=== PATIENT | male | born 1980 | race Caucasian/White ===

== ENCOUNTER 2017-03-10 23:25 | Inpatient (IN) | payer OTHER ==
[~2017-03-10] VITALS: Ht 182.9 cm; Wt 111.4 kg
[~2017-03-10 23:25] MED LIST: BENA20TA14 PO; OXYC1TAB3 PO
--- NOTE | 2017-03-10 23:43 | EMERGENCY ROOM VISIT NOTE ---
History Report prepared by Ken: Anthony Payne Under the Supervision of: Dr. Keyana Alexander D.O. First contact with patient: 23:33 Chief Complaint: ABDOMINAL PAIN Stated Complaint: ABDOMINAL PAIN, PAIN INTO BACK History of Present Illness The patient is a 36 year old male who presents to the Emergency Room with complaints of constant abdominal pain that started earlier tonight. The patient rates his pain as an 8/10 in severity and states that the pain radiates into his back. He reports that he has experienced these symptoms before a week ago at night, but states it was able to go away on its own. He states he has been fine all week until tonight when the symptoms returned. The patient states he was able to get some sleep, but the pain caused him to wake up and visit the ED. The patient admits that he had experienced leg cramps a week ago, but he believe this was due to his increased amount of walking. He admits to occasionally drinking alcohol and reports that his last drink was four days ago. 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 He reports that he has been stressed recently due to his job. He states that his family doctor is Dr. Que Jiang. The patient denies any history of abdominal surgery, worsening pain with breathing, urinary symptoms, bowel symptoms, nausea, medical history, pertinent family history, cough, and cold symptoms. Source of History: patient Onset: tonight Position: abdomen Symptom Intensity: 8/10 Timing: constant Associated Symptoms: No cough, No nausea, No urinary symptoms Review of Systems See HPI for pertinent positives & negatives. A total of 10 systems reviewed and were otherwise negative. Past Medical & Surgical Medical Problems: (1) Hypertension Surgical Problems: (1) History of tonsillectomy Family History Diabetes mellitus Hypertension Social History Smoking Status: Former Smoker Smokeless Tobacco Use: No Alcohol Use: occasionally Drug Use: none Marital Status: single Occupation Status: employed Current/Historical Medications No Active Prescriptions or Reported Meds Allergies Coded Allergies: No Known Allergies (Unverified , 03/10/17) Physical Exam Vital Signs Date Time Temp Pulse Resp B/P (MAP) Pulse Ox O2 Delivery O2 Flow Rate FiO2 03/11/17 03:43 71 18 150/96 96 Room Air 03/11/17 01:45 65 18 157/110 97 Room Air 03/11/17 01:20 70 16 161/112 97 Room Air 03/10/17 23:28 36.7 77 20 163/117 96 Room Air Physical Exam HEENT: Head - normocephalic and atraumatic Pupils are equal, round, and reactive to light. Extraocular eye muscles are intact, and sclera are anicteric. Moderate scleral injection in eyes. Nose - moist nasal mucosa without discharge. Mouth - moist buccal mucosa. Oropharynx is nonerythematous and there is no tonsillar exudate or edema noted. Neck: Supple; no JVD, nuchal rigidity, cervical lymphadenopathy. Heart: Regular rate and rhythm. There is a normal S1 and S2 with no murmurs, clicks, or gallops appreciated. Lungs: Clear to auscultation bilaterally with no wheezes, rales, or rhonchi. Abdomen: Soft, moderate tenderness in right upper quadrant upon palpation, moderate epigastric tenderness upon palpation, nondistended, with good bowel sounds. There are no palpable pulsatile masses or hepatosplenomegaly. There is no guarding, rigidity, or rebound noted. Extremities: No evidence of cyanosis, clubbing, or edema. There are easily palpable peripheral pulses. Skin: warm and dry with good turgor and no rashes. Medical Decision & Procedures ER Provider Diagnostic Interpretation: Radiology results as stated below per my review and the radiologist's interpretation: US GALLBLADDER: Gallbladder sludge. Gallbladder wall thickening measuring approximately 5 millimeters. Positive sonographic Conde sign per sec for portal. Findings may be due to acute cholecystitis. No intra-or extrahepatic player ductal dilation. Mildly increased hepatic echogenicity, can be seen in hepatic steatosis. No right hydronephrosis. No right upper quadrant free fluid. Radiologist: Brittany Erazo M.D. Laboratory Results 03/10/17 23:45 Red Blood Count 4.76, Mean Corpuscular Volume 89.1, Mean Corpuscular Hemoglobin 31.5, Mean Corpuscular Hemoglobin Concent 35.4, Mean Platelet Volume 10.0, Neutrophils (%) (Auto) 43.3, Lymphocytes (%) (Auto) 45.8, Monocytes (%) (Auto) 8.2, Eosinophils (%) (Auto) 2.3, Basophils (%) (Auto) 0.3, Neutrophils # (Auto) 3.38, Lymphocytes # (Auto) 3.58, Monocytes # (Auto) 0.64, Eosinophils # (Auto) 0.18, Basophils # (Auto) 0.02 03/10/17 23:45 Test 03/10/17 23:45 03/11/17 00:55 White Blood Count 7.81 K/uL (4.8-10.8) Red Blood Count 4.76 M/uL (4.7-6.1) Hemoglobin 15.0 g/dL (14.0-18.0) Hematocrit 42.4 % (42-52) Mean Corpuscular Volume 89.1 fL (80-100) Mean Corpuscular Hemoglobin 31.5 pg (25-34) Mean Corpuscular Hemoglobin Concent 35.4 g/dl (32-36) Platelet Count 207 K/uL (130-400) Mean Platelet Volume 10.0 fL (7.4-10.4) Neutrophils (%) (Auto) 43.3 % Lymphocytes (%) (Auto) 45.8 % Monocytes (%) (Auto) 8.2 % Eosinophils (%) (Auto) 2.3 % Basophils (%) (Auto) 0.3 % Neutrophils # (Auto) 3.38 K/uL (1.4-6.5) Lymphocytes # (Auto) 3.58 K/uL (1.2-3.4) Monocytes # (Auto) 0.64 K/uL (0.11-0.59) Eosinophils # (Auto) 0.18 K/uL (0-0.5) Basophils # (Auto) 0.02 K/uL (0-0.2) RDW Standard Deviation 40.4 fL (36.4-46.3) RDW Coefficient of Variation 12.6 % (11.5-14.5) Immature Granulocyte % (Auto) 0.1 % Immature Granulocyte # (Auto) 0.01 K/uL (0.00-0.02) Anion Gap 6.0 mmol/L (3-11) Est Creatinine Clear Calc Drug Dose 118.5 ml/min Estimated GFR () 98.9 Estimated GFR (Non- 85.3 BUN/Creatinine Ratio 17.0 (10-20) Calcium Level 9.0 mg/dl (8.5-10.1) Magnesium Level 2.1 mg/dl (1.8-2.4) Total Bilirubin 0.3 mg/dl (0.2-1) Direct Bilirubin < 0.1 mg/dl (0-0.2) Aspartate Amino Transf (AST/SGOT) 11 U/L (15-37) Alanine Aminotransferase (ALT/SGPT) 18 U/L (12-78) Alkaline Phosphatase 94 U/L (45-117) Total Creatine Kinase 115 U/L (39-308) Creatine Kinase MB 1.9 ng/ml (0.5-3.6) Creatine Kinase MB Ratio 1.7 (0-3.0) Troponin I < 0.015 ng/ml (0-0.045) Total Protein 6.7 gm/dl (6.4-8.2) Albumin 3.7 gm/dl (3.4-5.0) Lipase 238 U/L (73-393) Urine Color YELLOW Urine Appearance CLEAR (CLEAR) Urine pH 5.5 (4.5-7.5) Urine Specific [place] 1.031 (1.000-1.030) Urine Protein NEG (NEG) Urine Glucose (UA) NEG (NEG) Urine Ketones NEG (NEG) Urine Occult Blood NEG (NEG) Urine Nitrite NEG (NEG) Urine Bilirubin NEG (NEG) Urine Urobilinogen NEG (NEG) Urine Leukocyte Esterase NEG (NEG) Laboratory results per my review. Medications Administered Medications (Trade) Dose Ordered Sig/Angelica Route Start Time Stop Time Status Last Admin Dose Admin Ketorolac Tromethamine (Toradol Inj) 30 mg NOW STAT IV 03/11/17 01:14 03/11/17 01:15 DC 03/11/17 01:20 30 MG Ampicillin Sodium/ Sulbactam Sodium 3000 mg/Sodium Chloride 108 ml @ 200 mls/hr NOW STAT IV 03/11/17 04:42 03/11/17 05:14 DC 03/11/17 05:00 200 MLS/HR Procedure Toradol Injection 30 mg IV. ED Course 2337: Past medical records reviewed. The patient was evaluated in room A11B. A complete history and physical exam was performed. An IV lock was initiated and labs were drawn as above. 0107: I reevaluated the patient and he is in more pain in the right upper quadrant abdominal region. I will order him a dose of Toradol and an ultrasound. 0114: Toradol Injection 30 mg IV. 0324: I reevaluated the patient and he was asleep. I am waiting for the call back from Dr. Emery. 0326: I discussed the patient's case with [facility] He understands the patient's condition and agrees to accept the patient. The patient will be further evaluated. Medical Decision The patient is a 36 year old male who presents to the ED with complaints of abdominal pain that started earlier tonight . Differential diagnosis includes pancreatitis, hepatitis, cholecystitis, colitis, and gastritis. I attest that I have personally reviewed the patient's current medication list. Blood Pressure Screening: Patient was found to have a slightly elevated blood pressure due to circumstances. I do not believe that the patient requires hypertension monitoring. Labs Showed: No leukocytosis. Normal H&H. Normal Lipase. Normal LFTs Negative cardiac enzymes. Normal Renal Function. Slightly elevated BUN. Elevated specific gravity for Urinary Analysis. This is a 36-year-old male patient presents to the emergency department with epigastric abdominal pain and right upper quadrant abdominal pain. The patient denies any significant history of this. LFTs were normal, however ultrasound of the right upper quadrant revealed evidence of a thickened gallbladder wall and findings concerning for acute cholecystitis. The patient had a positive sonographic Conde sign. I discussed the case with Dr. Donohue from surgery and he requested admission by the hospitalist. I discussed the case with the [facility] as an unassigned patient. Consults Time Called: [phone] Consulting Physician: Lamberto Camp Returned Call: [phone] I discussed the patient's case with Lamberto Camp. He understands the patient's condition and agrees to accept the patient. The patient will be further evaluated. Impression Primary Impression: Acute cholecystitis Scribe Attestation The scribe's documentation has been prepared under my direction and personally reviewed by me in its entirety. I confirm that the note above accurately reflects all work, treatment, procedures, and medical decision making performed by me. Departure Information Dispostion Being Evaluated By Hospitalist Prescriptions No Active Prescriptions or Reported Meds Referrals Que Jiang (PCP) Patient Instructions My [facility]
[2017-03-11] VITALS (8 sets, daily range): BP systolic 145–164; BP diastolic 87–102; PULSE 57–96; TEMP 36.4–36.8; O2SAT 94–98; Ht 182.9 cm; Wt 111.4 kg
[2017-03-11 00:04] LABS: BASO % 0.3 %; BASO ABS # 0.02 K/uL (0-0.2); COMPLETE YES; EOS % 2.3 %; HEMATOCRIT 42.4 % (42-52); IG% 0.1 %; LYMPH % 45.8 %; LYMPH ABS # 3.58 K/uL (1.2-3.4); MEAN CELL VOLUME 89.1 fL (80-100); MEAN CORPUSCULAR HEMOGLOBIN 31.5 pg (25-34); MEAN CORPUSCULAR HGB CONC 35.4 g/dl (32-36); MONO % 8.2 %; NEUT % 43.3 %; PLATELET COUNT 207 K/uL (130-400); RED BLOOD COUNT 4.76 M/uL (4.7-6.1); WHITE BLOOD COUNT 7.81 K/uL (4.8-10.8)
[2017-03-11 00:24] LABS: ALT/SGPT 18 U/L (12-78); BLOOD UREA NITROGEN 19 mg/dl (7-18); CARBON DIOXIDE 28 mmol/L (21-32); CHLORIDE 106 mmol/L (98-107); GLUCOSE 92 mg/dl (70-99); POTASSIUM 3.7 mmol/L (3.5-5.1); SODIUM 140 mmol/L (136-145)
[2017-03-11 00:29] LABS: ALKALINE PHOSPHATASE 94 U/L (45-117); AST/SGOT 11 U/L (15-37); CKMB/CK RATIO 1.7 (0-3.0)
[2017-03-11 01:09] LABS: URINE APPEARANCE CLEAR (CLEAR); URINE BILIRUBIN NEG (NEG); URINE COLOR YELLOW; URINE NITRITE NEG (NEG); URINE PH 5.5 (4.5-7.5); URINE SPECIFIC GRAVITY 1.031 (1.000-1.030); UROBILINOGEN NEG (NEG)
[2017-03-11 01:10] LABS: MANUAL MICROSCOPIC REQUIRED? NO; REVIEW REQ? NO
[2017-03-11] MEDS ORDERED: KETOROLAC TROMETHAMINE 30 MG/ML VIAL IV STA (01:14)
[2017-03-11 04:29] LABS: MAGNESIUM 2.1 mg/dl (1.8-2.4)
[2017-03-11] MEDS ORDERED: AMPICILLIN/SULBACTAM SOD INJ 3,000 MG in SODIUM CHLORIDE 0.9% 100ML 100 ML IV STA (04:42)
[2017-03-11] MEDS ORDERED: ONDANSETRON INJ 2 MG/ML 2 ML VIAL IV PRN ×2 (05:30→15:45)
[2017-03-11] MEDS ORDERED: KETOROLAC TROMETHAMINE 30 MG/ML VIAL IV PRN (05:30)
[2017-03-11] MEDS ORDERED: TRAMADOL HCL 50 MG TAB PO PRN (05:30)
[2017-03-11] MEDS ORDERED: AMPICILLIN/SULBACTAM CONSULT ACTIVE PRN ×2 (05:45)
[2017-03-11] MEDS: LACTATED RINGER'S 1000ML 1,000 ML IV SCH ×2 (06:11→14:45)
[2017-03-11] MEDS: ACETAMINOPHEN 325 MG TAB PO PRN ×2 (06:43→13:59)
[2017-03-11 06:57] LABS: PARTIAL THROMBOPLASTIN RATIO 1.1; PROTHROMBIN TIME (PATIENT) 10.9 SECONDS (9.0-12.0)
--- NOTE | 2017-03-11 07:53 | DIAGNOSTIC IMAGING REPORT ---
ABDOMINAL ULTRASOUND, RIGHT UPPER QUADRANT HISTORY: Right upper quadrant abdominal pain. COMPARISON: None. FINDINGS: Pancreas: The pancreas demonstrates a normal echotexture. Liver: Unremarkable. Gallbladder: No gallstones. Sludge versus artifact within the gallbladder neck. No definite gallbladder wall thickening. Sonographic Conde sign was reportedly present. CBD: 5 mm. Right kidney: No hydronephrosis. IMPRESSION: Question of a small amount of sludge versus artifact within the gallbladder neck. No gallstones or gallbladder wall thickening. However, the technologist reported a positive sonographic Conde's sign. Follow-up nuclear medicine HIDA scan can be performed if clinically wanted. Electronically signed by: Tomi Littlejohn M.D. 03/11/2017 7:52 AM Dictated Date/Time: 03/11/2017 7:47 AM
--- NOTE | 2017-03-11 07:59 | HISTORY & PHYSICAL EXAMINATION ---
DATE OF ADMISSION: 03/11/2017 PRIMARY CARE DOCTOR: Dr. Jiang. CHIEF COMPLAINT: Abdominal pain. HISTORY OF PRESENT ILLNESS: History obtained from patient and records. Medical history significant for hypertension, past tobacco abuse, CARLENE status post surgery. Two days history of intermittent upper achy abdominal pain going to the back with some nausea. May have had a transient episode last week. Not related to food intake. No fever, no chills. Patient brought to the Emergency Room. MEDICAL HISTORY: As above. Off blood pressure medicine since 2013. SURGERIES: Uvulopalatopharyngoplasty. HOME MEDICATIONS: None. ALLERGIES: No known drug allergies. FAMILY HISTORY: Gallbladder disease. PERSONAL AND SOCIAL HISTORY: Past tobacco, no chronic alcohol intake. 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 REVIEW OF SYSTEMS: As per HPI, all other ROS negative. PHYSICAL EXAMINATION: VITAL SIGNS: Blood pressure was noted to be 160/107, later 130/90, pulse rate 70, RR 18, temperature 36.7, sats 97 on room air. GENERAL: Noted to be obese, comfortable, no respiratory distress. SKIN: Normal color. HEAD, EYES, EARS, NOSE, AND THROAT: [place] palpebral conjunctivae. Dry mucosa. NECK: Short neck. LUNGS: Decreased breath sounds. HEART: Regular rate and rhythm. ABDOMEN: No tenderness. EXTREMITIES: No edema. No tenderness. NEUROLOGIC: No gross focality. LABORATORY DATA: Hemoglobin was noted to be 15, hematocrit 40, white cell 9, platelets 207. Sodium 140, potassium 3.7, chloride 106, glucose was noted to be 92. Normal LFTs, lipase. Ultrasound gallbladder initial read with sludge, positive sonogram sign, possible cholecystitis, hepatic steatosis . ASSESSMENT AND PLAN: 1. Acute cholecystitis. No sepsis. 2. Hypertension, not on maintenance meds. slightly elevated secondary to discomfort 3. CARLENE sp surgery 4. past tobacco abuse. F Unasyn. Surgery consult. RE cholecystitis ER provider already in touch with Dr. Donohue DVT prophylaxis. Lovenox subcutaneous FULL CODE. MTDD
[2017-03-11] MEDS ORDERED: NURSING VERBAL MED ORDER ONE (08:00)
--- NOTE | 2017-03-11 08:23 | Surgery Consultation ---
Consultation Date of Consultation: Mar 11, 2017. Attending Physician: Phillip Galloway MD History of Present Illness The patient is a 36 year old male who presents to the Emergency Room with complaints of constant abdominal pain that started earlier tonight. The patient rates his pain as an 8/10 in severity and states that the pain radiates into his back. He reports that he has experienced these symptoms before a week ago at night, but states it was able to go away on its own. He states he has been fine all week until tonight when the symptoms returned. The patient states he was able to get some sleep, but the pain caused him to wake up and visit the ED. The patient admits that he had experienced leg cramps a week ago, but he believe this was due to his increased amount of walking. He admits to occasionally drinking alcohol and reports that his last drink was four days ago. 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 He reports that he has been stressed recently due to his job. He states that his family doctor is Dr. Que Jiang. The patient denies any history of abdominal surgery, worsening pain with breathing, urinary symptoms, bowel symptoms, nausea, medical history, pertinent family history, cough, and cold symptoms. I saw pt and reviewd his history and PE. pt feels better, no nausea, no vomiting , no fever. Past Medical/Surgical History Medical Problems: (1) Acute cholecystitis Status: Acute Family History Diabetes mellitus Hypertension Social History Smoking Status: Never Smoker Smokeless Tobacco Use: No Alcohol Use: occasionally Drug Use: none Marital Status: single Occupation Status: employed Allergies Coded Allergies: No Known Allergies (Unverified , 03/10/17) Home Medications No Active Prescriptions or Reported Meds Current Inpatient Medications Current Inpatient Medications Medications (Trade) Dose Ordered Sig/Angelica Route Start Time Stop Time Status Last Admin Dose Admin Lactated Ringer's 1,000 ml @ 100 mls/hr Q10H IV 03/11/17 04:15 04/10/17 04:14 03/11/17 06:11 75 MLS/HR Enoxaparin Sodium (Lovenox Inj) 40 mg Q24H SQ 03/11/17 09:00 04/10/17 08:59 Acetaminophen (Tylenol Tab) 650 mg Q4H PRN PO 03/11/17 05:30 04/10/17 05:29 03/11/17 06:43 650 MG Ampicillin Sodium/ Sulbactam Sodium (Consult) 1 ea UD PRN N/A 03/11/17 05:45 04/10/17 05:44 Ondansetron HCl (Zofran Inj) 4 mg Q6H PRN IV 03/11/17 05:30 04/10/17 05:29 Tramadol HCl (Ultram Tab) not relieved by tylenol @ Q6H PRN PO 03/11/17 05:30 04/10/17 05:29 Morphine Sulfate (MoRPHine SULFATE INJ) 4 mg Q3H PRN IV 03/11/17 05:30 03/25/17 05:29 Review of Systems Constitutional: No fever, No chills, No sweats, No weight loss, No weakness, No fatigue, No problem reported Eyes: No worsening of vision, No eye pain, No redness, No discharge, No diplopia, No problem reported ENT: No hearing loss, No unusual epistaxis, No nasal symptoms, No sore throat, No tinnitus, No dental problems, No trouble swallowing, No problem reported Respiratory: No cough, No sputum, No wheezing, No shortness of breath, No dyspnea on exertion, No dyspnea at rest, No hemoptysis, No problem reported Cardiovascular: No chest pain, No orthopnea, No PND, No edema, No claudication , No palpitations, No problem reported Abdomen: + pain Musculoskeletal: No joint pain, No muscle pain, No swelling, No calf pain, No problem reported Genitourinary - Male: No hematuria, No dysuria, No urinary frequency, No urinary urgency, No urinary hesitancy, No urinary retention, No urinary incontinence, No penile discharge, No lesions, No impotence, No problem reported Neurologic: No memory loss, No paralysis, No weakness, No numbness/tingling, No vertigo, No balance problems, No problem reported Psychiatric: No depression symptoms, No anhedonism, No anxiety, No insomnia, No substance abuse, No problem reported Endocrine: + problem reported (DM) Hematologic / Lymphatic: No abnormal bleeding/bruising, No clotting problems, No swollen lymph nodes, No night sweats, No problem reported Physical Exam Date Time Temp Pulse Resp B/P (MAP) Pulse Ox O2 Delivery O2 Flow Rate FiO2 03/11/17 07:15 Room Air 03/11/17 07:08 154/102 (119) 03/11/17 06:06 36.4 62 18 164/101 Room Air 03/11/17 05:26 70 18 147/91 97 03/11/17 03:43 71 18 150/96 96 Room Air 03/11/17 01:45 65 18 157/110 97 Room Air 03/11/17 01:20 70 16 161/112 97 Room Air 03/10/17 23:28 36.7 77 20 163/117 96 Room Air General Appearance: WD/WN, no apparent distress Head: normocephalic Eyes: normal inspection ENT: normal ENT inspection Neck: supple, no JVD Respiratory/Chest: chest non-tender, lungs clear, normal breath sounds Cardiovascular: regular rate, rhythm, no edema, no gallop, no JVD Abdomen/GI: normal bowel sounds, soft, no organomegaly, no pulsatile mass, + tenderness (Tenderness at RUQ) Extremities/Musculoskelatal: normal inspection, no calf tenderness, normal capillary refill Neurologic/Psych: no motor/sensory deficits, alert, normal mood/affect Skin: normal color, warm/dry, no rash Laboratory Results Last 24 Hours Test 03/10/17 23:45 03/11/17 00:55 03/11/17 06:33 White Blood Count 7.81 K/uL Red Blood Count 4.76 M/uL Hemoglobin 15.0 g/dL Hematocrit 42.4 % Mean Corpuscular Volume 89.1 fL Mean Corpuscular Hemoglobin 31.5 pg Mean Corpuscular Hemoglobin Concent 35.4 g/dl Platelet Count 207 K/uL Mean Platelet Volume 10.0 fL Neutrophils (%) (Auto) 43.3 % Lymphocytes (%) (Auto) 45.8 % Monocytes (%) (Auto) 8.2 % Eosinophils (%) (Auto) 2.3 % Basophils (%) (Auto) 0.3 % Neutrophils # (Auto) 3.38 K/uL Lymphocytes # (Auto) 3.58 K/uL Monocytes # (Auto) 0.64 K/uL Eosinophils # (Auto) 0.18 K/uL Basophils # (Auto) 0.02 K/uL RDW Standard Deviation 40.4 fL RDW Coefficient of Variation 12.6 % Immature Granulocyte % (Auto) 0.1 % Immature Granulocyte # (Auto) 0.01 K/uL Sodium Level 140 mmol/L Potassium Level 3.7 mmol/L Chloride Level 106 mmol/L Carbon Dioxide Level 28 mmol/L Anion Gap 6.0 mmol/L Blood Urea Nitrogen 19 mg/dl Creatinine 1.10 mg/dl Est Creatinine Clear Calc Drug Dose 118.5 ml/min Estimated GFR () 98.9 Estimated GFR (Non- 85.3 BUN/Creatinine Ratio 17.0 Random Glucose 92 mg/dl Calcium Level 9.0 mg/dl Magnesium Level 2.1 mg/dl Total Bilirubin 0.3 mg/dl Direct Bilirubin < 0.1 mg/dl Aspartate Amino Transf (AST/SGOT) 11 U/L Alanine Aminotransferase (ALT/SGPT) 18 U/L Alkaline Phosphatase 94 U/L Total Creatine Kinase 115 U/L Creatine Kinase MB 1.9 ng/ml Creatine Kinase MB Ratio 1.7 Troponin I < 0.015 ng/ml Total Protein 6.7 gm/dl Albumin 3.7 gm/dl Lipase 238 U/L Urine Color YELLOW Urine Appearance CLEAR Urine pH 5.5 Urine Specific [place] 1.031 Urine Protein NEG Urine Glucose (UA) NEG Urine Ketones NEG Urine Occult Blood NEG Urine Nitrite NEG Urine Bilirubin NEG Urine Urobilinogen NEG Urine Leukocyte Esterase NEG Prothrombin Time 10.9 SECONDS Prothromb Time International Ratio 1.0 Activated Partial Thromboplast Time 28.5 SECONDS Partial Thromboplastin Ratio 1.1 Assessment & Plan US GALLBLADDER: Gallbladder sludge. Gallbladder wall thickening measuring approximately 5 millimeters. Positive sonographic Conde sign per sec for portal. Findings may be due to acute cholecystitis. No intra-or extrahepatic player ductal dilation. Mildly increased hepatic echogenicity, can be seen in hepatic steatosis. No right hydronephrosis. No right upper quadrant free fluid. Assessment: 36 yo male who presents to ER for RUQ pain, U/S. acute cholecystitis , IMP: acute cholecystitis, Plan, I recommend to do laparoscopic cholecystectomy, possible open or cholangiogram, D/W benefits, risks, and alternatives of the procedure, the risks - infection, bleeding, injury CBD, bowel, may need ERCP, , pt understood, he agrees with the plan, I answered all questions,
[2017-03-11] MEDS: ENOXAPARIN 40 MG/0.4 ML SYR SQ SCH (08:33)
--- NOTE | 2017-03-11 15:33 | Progress Note ---
Internal Med Progress Note Date of Service: Mar 11, 2017. Provider Documentation: SUBJECTIVE: Seen and examined post op in recovery room. Had cholecystectomy today Reports having some pain at surgical site. Denies SOB, chest pain. OBJECTIVE: Vital Signs-as noted below Physical Exam: General Appearance:Moderately built and nourished, no apparent distress Head: normocephalic, Atraumatic Eyes: normal inspection, EOMI, PERRL Neck: supple, Trachea midline Respiratory/Chest: Normal breath sounds, CTA Cardiovascular: S1, S2, No murmur Abdomen/GI:Soft, tender, surgical site in bandage, Bowel sounds present Extremities/Musculoskelatal:normal inspection, no edema Neurologic/Psych:grossly no focal neurological deficits Skin: normal color, warm Lab data as noted below. ASSESSMENT & PLAN: Abdominal pain secondary to Acute cholecystitis: No signs of sepsis S/P Cholecystectomy POD # 0 Appreciate surgery help Diet per surgery Continue IV fluids, Unasyn Pain control Hypertension: not on any meds at home Monitor CARLENE S/P surgery Past tobacco abuse DVT Px: Lovenox SQ Code Status: FULL CODE Vital Signs: Date Time Temp Pulse Resp B/P (MAP) Pulse Ox O2 Delivery O2 Flow Rate FiO2 03/11/17 18:30 79 16 03/11/17 18:30 77 16 170/105 98 03/11/17 18:25 77 16 163/106 96 03/11/17 18:25 79 16 03/11/17 18:20 78 17 158/101 97 03/11/17 18:20 78 17 03/11/17 18:17 153/104 03/11/17 18:15 88 12 182/107 97 03/11/17 18:15 90 12 03/11/17 18:14 70 14 03/11/17 18:14 69 14 97 03/11/17 18:10 164/101 03/11/17 18:09 63 13 94 03/11/17 18:09 64 13 03/11/17 18:05 161/105 03/11/17 18:04 55 16 03/11/17 18:04 60 16 95 03/11/17 18:01 170/100 03/11/17 17:59 74 14 03/11/17 17:59 70 14 97 03/11/17 17:58 161/106 03/11/17 17:56 66 14 96 03/11/17 17:56 66 14 03/11/17 17:55 176/106 03/11/17 17:51 65 13 03/11/17 17:51 65 13 168/97 96 03/11/17 17:46 66 19 03/11/17 17:46 66 19 93 03/11/17 17:45 160/99 03/11/17 17:41 74 17 03/11/17 17:41 70 17 95 03/11/17 17:40 157/97 03/11/17 17:37 172/98 03/11/17 17:36 36.2 73 16 172/98 97 Nasal Cannula 2 03/11/17 17:36 70 19 03/11/17 17:36 68 19 96 03/11/17 07:55 36.5 57 16 148/87 (107) 96 Room Air 03/11/17 07:15 Room Air 03/11/17 07:08 154/102 (119) 03/11/17 06:06 36.4 62 18 164/101 Room Air 03/11/17 05:26 70 18 147/91 97 03/11/17 03:43 71 18 150/96 96 Room Air 03/11/17 01:45 65 18 157/110 97 Room Air 03/11/17 01:20 70 16 161/112 97 Room Air 03/10/17 23:28 36.7 77 20 163/117 96 Room Air Lab Results: Results Past 24 Hours Test 03/10/17 23:45 03/11/17 00:55 03/11/17 06:33 Range/Units White Blood Count 7.81 4.8-10.8 K/uL Red Blood Count 4.76 4.7-6.1 M/uL Hemoglobin 15.0 14.0-18.0 g/dL Hematocrit 42.4 42-52 % Mean Corpuscular Volume 89.1 80-100 fL Mean Corpuscular Hemoglobin 31.5 25-34 pg Mean Corpuscular Hemoglobin Concent 35.4 32-36 g/dl Platelet Count 207 130-400 K/uL Mean Platelet Volume 10.0 7.4-10.4 fL Neutrophils (%) (Auto) 43.3 % Lymphocytes (%) (Auto) 45.8 % Monocytes (%) (Auto) 8.2 % Eosinophils (%) (Auto) 2.3 % Basophils (%) (Auto) 0.3 % Neutrophils # (Auto) 3.38 1.4-6.5 K/uL Lymphocytes # (Auto) 3.58 1.2-3.4 K/uL Monocytes # (Auto) 0.64 0.11-0.59 K/uL Eosinophils # (Auto) 0.18 0-0.5 K/uL Basophils # (Auto) 0.02 0-0.2 K/uL RDW Standard Deviation 40.4 36.4-46.3 fL RDW Coefficient of Variation 12.6 11.5-14.5 % Immature Granulocyte % (Auto) 0.1 % Immature Granulocyte # (Auto) 0.01 0.00-0.02 K/uL Sodium Level 140 136-145 mmol/L Potassium Level 3.7 3.5-5.1 mmol/L Chloride Level 106 98-107 mmol/L Carbon Dioxide Level 28 21-32 mmol/L Anion Gap 6.0 3-11 mmol/L Blood Urea Nitrogen 19 7-18 mg/dl Creatinine 1.10 0.60-1.40 mg/dl Est Creatinine Clear Calc Drug Dose 118.5 ml/min Estimated GFR () 98.9 Estimated GFR (Non- 85.3 BUN/Creatinine Ratio 17.0 10-20 Random Glucose 92 70-99 mg/dl Calcium Level 9.0 8.5-10.1 mg/dl Magnesium Level 2.1 1.8-2.4 mg/dl Total Bilirubin 0.3 0.2-1 mg/dl Direct Bilirubin < 0.1 0-0.2 mg/dl Aspartate Amino Transf (AST/SGOT) 11 15-37 U/L Alanine Aminotransferase (ALT/SGPT) 18 12-78 U/L Alkaline Phosphatase 94 45-117 U/L Total Creatine Kinase 115 39-308 U/L Creatine Kinase MB 1.9 0.5-3.6 ng/ml Creatine Kinase MB Ratio 1.7 0-3.0 Troponin I < 0.015 0-0.045 ng/ml Total Protein 6.7 6.4-8.2 gm/dl Albumin 3.7 3.4-5.0 gm/dl Lipase 238 73-393 U/L Urine Color YELLOW Urine Appearance CLEAR CLEAR Urine pH 5.5 4.5-7.5 Urine Specific [place] 1.031 1.000-1.030 Urine Protein NEG NEG Urine Glucose (UA) NEG NEG Urine Ketones NEG NEG Urine Occult Blood NEG NEG Urine Nitrite NEG NEG Urine Bilirubin NEG NEG Urine Urobilinogen NEG NEG Urine Leukocyte Esterase NEG NEG Prothrombin Time 10.9 9.0-12.0 SECONDS Prothromb Time International Ratio 1.0 0.9-1.1 Activated Partial Thromboplast Time 28.5 21.0-31.0 SECONDS Partial Thromboplastin Ratio 1.1
[2017-03-11] MEDS: AMPICILLIN/SULBACTAM SOD INJ 3,000 MG in SODIUM CHLORIDE 0.9% 100ML 100 ML IV SCH ×3 (15:43→22:57)
[2017-03-11] MEDS ORDERED: EpHEDrine SULFATE INJ 50 MG/ML AMP IV PRN (15:45)
[2017-03-11] MEDS ORDERED: ATROPINE SULFATE 0.1 MG/ML 5ML SYR IV PRN (15:45)
--- NOTE | 2017-03-11 15:52 | History & Physical Bridge Note ---
H&P Re-Evaluation Bridge Note: I have examined the patient, reviewed the History & Physical and in the interval since the performance of the History & Physical I have noted the following changes of clinical significance: No changes noted
[2017-03-11] MEDS ORDERED: BUPIVACAINE 0.5 % 5 MG/1 ML MPF 30ML VIAL ONE (15:53)
[2017-03-11] MEDS ORDERED: BACITRACIN OINT 15 GM TUBE ONE (15:53)
[2017-03-11] MEDS ORDERED: LIDOCAINE HCL 1% 20 ML VIAL ONE (15:53)
[2017-03-11] MEDS ORDERED: FENTANYL CITRATE INJ 50 MCG/1 ML 2 ML VIAL ONE ×2 (15:54→16:24)
[2017-03-11] MEDS ORDERED: MIDAZOLAM HCL 1 MG/ML 2ML VIAL ONE (15:54)
[2017-03-11] MEDS ORDERED: CEFAZOLIN IV 2,000 MG/60 ML D5W IV ONE ×2 (15:59→16:00)
[2017-03-11] MEDS ORDERED: DEXAMETHASONE SOD INJ 4 MG/ML VIAL ONE (16:40)
[2017-03-11] MEDS ORDERED: ROCURONIUM BROMIDE 10 MG/ML 5 ML VIAL ONE (16:40)
[2017-03-11] MEDS ORDERED: PROPOFOL IV EMULSION 10 MG/ML 20 ML VIAL IV ONE (16:40)
[2017-03-11] MEDS ORDERED: LIDOCAINE HCL 2% 2 ML VIAL (20MG/ML) ONE (16:40)
[2017-03-11] MEDS ORDERED: ONDANSETRON INJ 2 MG/ML 2 ML VIAL ONE (16:40)
--- NOTE | 2017-03-11 17:32 | [facility] Post Operative Brief Note ---
Immediate Operative Summary Operative Date Mar 11, 2017. Pre-Operative Diagnosis Acute Cholecystitis Post-Operative Diagnosis Acute Cholecystitis Procedure(s) Performed Laparoscopic Cholecystectomy Surgeon Dr. Donohue Rn Forensic Surgeon(s) surgical technology instructor Estimated Blood Loss 10ml Findings acute cholecystitis Fluids (cc crystalloids) 1000ml Specimens A. Gallbladder and contents Drains none Anesthesia general Complication(s) None Disposition Recovery Room / PACU
--- NOTE | 2017-03-11 17:36 | Surgery Progress Note ---
Surgery Progress Note Date of Service Mar 11, 2017. Subjective + feeling well pt is doing bwtter, no nausea, no vomiting, Objective Vital Signs: Date Time Temp Pulse Resp B/P (MAP) Pulse Ox O2 Delivery O2 Flow Rate FiO2 03/11/17 07:55 36.5 57 16 148/87 (107) 96 Room Air 03/11/17 07:15 Room Air 03/11/17 07:08 154/102 (119) 03/11/17 06:06 36.4 62 18 164/101 Room Air 03/11/17 05:26 70 18 147/91 97 03/11/17 03:43 71 18 150/96 96 Room Air 03/11/17 01:45 65 18 157/110 97 Room Air 03/11/17 01:20 70 16 161/112 97 Room Air 03/10/17 23:28 36.7 77 20 163/117 96 Room Air General Appearance: WD/WN, no apparent distress Head: normocephalic Neck: supple, no JVD Respiratory/Chest: chest non-tender, lungs clear Cardiovascular: regular rate, rhythm, no edema, no gallop, no JVD Abdomen: normal bowel sounds, non distended, soft, + tenderness (at RUQ) Extremities: normal range of motion, non-tender, normal inspection Laboratory Results: Results Past 24 Hours Test 03/10/17 23:45 03/11/17 00:55 03/11/17 06:33 Range/Units White Blood Count 7.81 4.8-10.8 K/uL Red Blood Count 4.76 4.7-6.1 M/uL Hemoglobin 15.0 14.0-18.0 g/dL Hematocrit 42.4 42-52 % Mean Corpuscular Volume 89.1 80-100 fL Mean Corpuscular Hemoglobin 31.5 25-34 pg Mean Corpuscular Hemoglobin Concent 35.4 32-36 g/dl Platelet Count 207 130-400 K/uL Mean Platelet Volume 10.0 7.4-10.4 fL Neutrophils (%) (Auto) 43.3 % Lymphocytes (%) (Auto) 45.8 % Monocytes (%) (Auto) 8.2 % Eosinophils (%) (Auto) 2.3 % Basophils (%) (Auto) 0.3 % Neutrophils # (Auto) 3.38 1.4-6.5 K/uL Lymphocytes # (Auto) 3.58 1.2-3.4 K/uL Monocytes # (Auto) 0.64 0.11-0.59 K/uL Eosinophils # (Auto) 0.18 0-0.5 K/uL Basophils # (Auto) 0.02 0-0.2 K/uL RDW Standard Deviation 40.4 36.4-46.3 fL RDW Coefficient of Variation 12.6 11.5-14.5 % Immature Granulocyte % (Auto) 0.1 % Immature Granulocyte # (Auto) 0.01 0.00-0.02 K/uL Sodium Level 140 136-145 mmol/L Potassium Level 3.7 3.5-5.1 mmol/L Chloride Level 106 98-107 mmol/L Carbon Dioxide Level 28 21-32 mmol/L Anion Gap 6.0 3-11 mmol/L Blood Urea Nitrogen 19 7-18 mg/dl Creatinine 1.10 0.60-1.40 mg/dl Est Creatinine Clear Calc Drug Dose 118.5 ml/min Estimated GFR () 98.9 Estimated GFR (Non- 85.3 BUN/Creatinine Ratio 17.0 10-20 Random Glucose 92 70-99 mg/dl Calcium Level 9.0 8.5-10.1 mg/dl Magnesium Level 2.1 1.8-2.4 mg/dl Total Bilirubin 0.3 0.2-1 mg/dl Direct Bilirubin < 0.1 0-0.2 mg/dl Aspartate Amino Transf (AST/SGOT) 11 15-37 U/L Alanine Aminotransferase (ALT/SGPT) 18 12-78 U/L Alkaline Phosphatase 94 45-117 U/L Total Creatine Kinase 115 39-308 U/L Creatine Kinase MB 1.9 0.5-3.6 ng/ml Creatine Kinase MB Ratio 1.7 0-3.0 Troponin I < 0.015 0-0.045 ng/ml Total Protein 6.7 6.4-8.2 gm/dl Albumin 3.7 3.4-5.0 gm/dl Lipase 238 73-393 U/L Urine Color YELLOW Urine Appearance CLEAR CLEAR Urine pH 5.5 4.5-7.5 Urine Specific [place] 1.031 1.000-1.030 Urine Protein NEG NEG Urine Glucose (UA) NEG NEG Urine Ketones NEG NEG Urine Occult Blood NEG NEG Urine Nitrite NEG NEG Urine Bilirubin NEG NEG Urine Urobilinogen NEG NEG Urine Leukocyte Esterase NEG NEG Prothrombin Time 10.9 9.0-12.0 SECONDS Prothromb Time International Ratio 1.0 0.9-1.1 Activated Partial Thromboplast Time 28.5 21.0-31.0 SECONDS Partial Thromboplastin Ratio 1.1 Assessment & Plan pt had laparoscopic cholecystectomy done, pt tolerated the procedure well, pt can be D/C home tomorrow, if he tolerated diet, keep the dressing on for 4 days, he can take a shower on 03/15. Follow up me 1 week, [id number] full liquids
[2017-03-11] MEDS: FENTANYL CITRATE INJ 50 MCG/1 ML 2 ML VIAL IV PRN ×4 (17:44→18:34)
[2017-03-11] MEDS ORDERED: HydrALAZINE HCL 20 MG/ML VIAL ONE (17:59)
[2017-03-11] MEDS ORDERED: HydrALAZINE HCL 20 MG/ML VIAL IV. STA ×2 (18:26→18:56)
[2017-03-11] MEDS ORDERED: LABETALOL HCL IV 5 MG/ML 20ML IV ONE (18:40)
[2017-03-11] MEDS ORDERED: LABETALOL HCL IV 5 MG/ML 20ML IV STA (18:40)
--- NOTE | 2017-03-11 18:56 | Anesthesiology Progress Note ---
Anesthesia Post Op Note Date & Time Mar 11, 2017 at 18:55 Vital Signs Pain Intensity: 4 Vital Signs Past 12 Hours Date Time Temp Pulse Resp B/P (MAP) Pulse Ox O2 Delivery O2 Flow Rate FiO2 03/11/17 18:46 85 18 96 03/11/17 18:46 84 18 03/11/17 18:45 154/104 03/11/17 18:41 85 17 03/11/17 18:41 85 17 97 03/11/17 18:40 157/104 03/11/17 18:37 154/100 03/11/17 18:36 91 20 98 03/11/17 18:36 90 20 03/11/17 18:35 171/106 03/11/17 18:31 85 17 98 03/11/17 18:31 83 17 03/11/17 18:30 79 16 03/11/17 18:30 77 16 170/105 98 03/11/17 18:25 77 16 163/106 96 03/11/17 18:25 79 16 03/11/17 18:20 78 17 158/101 97 03/11/17 18:20 78 17 03/11/17 18:17 153/104 03/11/17 18:15 88 12 182/107 97 03/11/17 18:15 90 12 03/11/17 18:14 70 14 03/11/17 18:14 69 14 97 03/11/17 18:10 164/101 03/11/17 18:09 63 13 94 03/11/17 18:09 64 13 03/11/17 18:05 161/105 03/11/17 18:04 55 16 03/11/17 18:04 60 16 95 03/11/17 18:01 170/100 03/11/17 17:59 74 14 03/11/17 17:59 70 14 97 03/11/17 17:58 161/106 03/11/17 17:56 66 14 96 03/11/17 17:56 66 14 03/11/17 17:55 176/106 03/11/17 17:51 65 13 03/11/17 17:51 65 13 168/97 96 03/11/17 17:46 66 19 03/11/17 17:46 66 19 93 03/11/17 17:45 160/99 03/11/17 17:41 74 17 03/11/17 17:41 70 17 95 03/11/17 17:40 157/97 03/11/17 17:37 172/98 03/11/17 17:36 36.2 73 16 172/98 97 Nasal Cannula 2 03/11/17 17:36 70 19 03/11/17 17:36 68 19 96 03/11/17 07:55 36.5 57 16 148/87 (107) 96 Room Air 03/11/17 07:15 Room Air 03/11/17 07:08 154/102 (119) Notes Mental Status: alert / awake / arousable, participated in evaluation Pt Amnestic to Procedure: Yes Nausea / Vomiting: adequately controlled Pain: adequately controlled Airway Patency, RR, SpO2: stable & adequate BP & HR: stable & adequate Hydration State: stable & adequate Anesthetic Complications: no major complications apparent
[2017-03-11] MEDS: MoRPHine SULFATE 4 MG/ML 1 ML CARP\\VIAL IV PRN ×2 (19:35→22:58)
--- NOTE | 2017-03-11 21:39 | OPERATIVE REPORT ---
DATE OF OPERATION: 03/11/2017 PREOPERATIVE DIAGNOSIS: Acute cholecystitis. POSTOPERATIVE DIAGNOSIS: Same. PROCEDURE: Laparoscopic cholecystectomy. SURGEON: Bakari Donohue MD ANESTHESIA: General. ESTIMATED BLOOD LOSS: About 10 mL. FINDINGS: Acute cholecystitis. COMPLICATIONS: None. INDICATIONS FOR THE PROCEDURE: This is a 36-year-old gentleman, who presented with right upper quadrant pain. The patient had an ultrasound that showed he has acute cholecystitis. The patient will be required to do laparoscopic cholecystectomy, possible open, possible cholangiogram. I did talk to the patient about the benefits, risks and alternate procedures. I indicated the risks may include but not limited such as some bleeding, infection, injury to common bile duct, injury to bowel. He may need ERCP. The patient understands. He signed informed consent and I answered all questions. DETAILS OF THE PROCEDURE: We brought the patient to the OR and put the patient in the supine position. The patient received SCD on bilateral legs to prevent DVT. Also, the patient received 2 grams Ancef IV for prophylactic antibiotic. The patient received general anesthesia without difficulty. The abdomen was prepped and draped in routine sterile fashion. After time out, I injected local anesthesia by using 1% lidocaine mixed with 0.5% Marcaine just above the umbilicus. Then I made a small incision just above the umbilicus, opened fascia and opened peritoneum under direct vision. I put a Lauren trocar in, connected to CO2 to create pneumoperitoneum. Flow rate is 6 liter per minute. Pressure not more than 14 mmHg. Once we got a nice pneumoperitoneum, we put a 10 mm camera in to look around the abdomen; showing normal looking stomach, small bowel, large bowel; however, significant omentum covers the gallbladder. The gallbladder shows gallbladder wall thickening with edema; shows acute cholecystitis. Then, we put another 3.5 mm trocar in the right upper quadrant. Once all trocars were in, I put a grasper in to hold the base of the gallbladder, put direction to the diaphragm and put another grasper in to hold the pouch of the gallbladder, put the latter to expose the triangle of Calot. The cystic duct was identified and mobilized. I put two 5 mm metal clips on the proximal cystic duct, one on the distal cystic duct; then I used scissor to transect the cystic duct. Then the cystic artery was identified and mobilized. I put two 5 mm metal clips on the proximal cystic artery and one on the distal cystic artery. Then, I used a scissor to transect the cystic artery. I rechecked, no active bleeding, no bile leak. Then I used a Bovie to take down the gallbladder from the liver bed without difficulty. I rechecked; no bile leak and no active bleeding from the liver bed. Then we pulled out the gallbladder through the catch bag and then we reinserted the Lauren trocar in to connect to CO2 to create pneumoperitoneum again. I looked around the abdomen; no bile leak and no active bleeding from the liver bed. Then we removed all trocars under direct vision. No active bleeding from the trocar sites. The pneumoperitoneum was released, then I closed the umbilical incision, fascial layer by using #1 Vicryl [id number] x2, closed the subcutaneous layer by using 2-0 Vicryl continuous running and closed skin by using 4-0 Vicryl continuous running. We closed another 3.5 mm trocar site skin only by using 4-0 Vicryl. We put the dressing on. The patient tolerated the procedure well. All the instruments, needle and sponge count were correct x2 at the end of the case. The specimen was sent to pathology. The patient was transferred to recovery room in stable condition. After the procedure, I did talk to the patient's family member about the OR findings and procedure we did. She understands. I attest to the content of the Intraoperative Record and any orders documented therein. Any exceptions are noted below. FELA
[2017-03-12] MEDS: AMPICILLIN/SULBACTAM SOD INJ 3,000 MG in SODIUM CHLORIDE 0.9% 100ML 100 ML IV SCH ×2 (03:23→09:13)
[2017-03-12] MEDS: LACTATED RINGER'S 1000ML 1,000 ML IV SCH (03:23)
[2017-03-12 04:00] VITALS: BP 139/81; PULSE 95; TEMP 36.6; O2SAT 97
[2017-03-12 06:02] LABS: BASO % 0.1 %; BASO ABS # 0.01 K/uL (0-0.2); COMPLETE YES; HEMATOCRIT 45.3 % (42-52); IG% 0.1 %; LYMPH % 13.7 %; LYMPH ABS # 1.25 K/uL (1.2-3.4); MEAN CELL VOLUME 89.2 fL (80-100); MEAN CORPUSCULAR HEMOGLOBIN 29.9 pg (25-34); MEAN CORPUSCULAR HGB CONC 33.6 g/dl (32-36); MONO % 6.1 %; PLATELET COUNT 226 K/uL (130-400); RED BLOOD COUNT 5.08 M/uL (4.7-6.1); WHITE BLOOD COUNT 9.11 K/uL (4.8-10.8)
[2017-03-12 06:56] LABS: BUN/CREATININE RATIO 10.5 (10-20); CALCIUM 8.6 mg/dl (8.5-10.1); CREATININE 0.92 mg/dl (0.60-1.40); POTASSIUM 4.2 mmol/L (3.5-5.1)
[2017-03-12 07:30] VITALS: BP 139/79; PULSE 85; TEMP 36.9; O2SAT 97
[2017-03-12] MEDS: MoRPHine SULFATE 4 MG/ML 1 ML CARP\\VIAL IV PRN (07:30)
[2017-03-12] MEDS: ENOXAPARIN 40 MG/0.4 ML SYR SQ SCH (08:50)
--- NOTE | 2017-03-12 09:22 | Surgery Progress Note ---
Surgery Progress Note Date of Service Mar 12, 2017. Subjective Post OP Day: 1 + feeling well, + ambulating, + flatus, + pain controlled, No complaints, No nausea, No vomiting Patient examined at bedside this morning. Afebrile, vitals stable overnight on room air, no acute events. Pain is well controlled. Tolerating full liquids this morning for breakfast. Ambulating and voiding without difficulty. +Flatus , no BM yet. Objective Vital Signs: Date Time Temp Pulse Resp B/P (MAP) Pulse Ox O2 Delivery O2 Flow Rate FiO2 03/12/17 07:37 Room Air 03/12/17 07:30 36.9 85 16 139/79 (99) 97 Room Air 03/12/17 04:00 36.6 95 20 139/81 (100) 97 Room Air 03/11/17 22:15 96 20 150/88 (108) 94 Room Air 03/11/17 21:15 94 20 145/87 (106) 97 Room Air 03/11/17 21:00 Room Air 03/11/17 20:15 92 20 155/93 (113) 97 Room Air 03/11/17 19:45 92 20 152/91 (111) 98 Nasal Cannula 2.0 03/11/17 19:15 97 Nasal Cannula 2.0 03/11/17 19:15 36.8 88 18 156/92 (113) 97 Nasal Cannula 2.0 03/11/17 19:15 97 Nasal Cannula 2.0 03/11/17 19:06 89 20 97 03/11/17 19:06 89 20 03/11/17 19:05 147/94 03/11/17 19:02 37.2 03/11/17 19:01 83 18 96 03/11/17 19:01 83 18 03/11/17 19:00 155/94 03/11/17 18:57 84 16 03/11/17 18:57 83 16 98 03/11/17 18:55 146/99 03/11/17 18:52 78 19 97 03/11/17 18:52 78 19 03/11/17 18:50 151/108 03/11/17 18:47 80 17 03/11/17 18:47 79 17 96 03/11/17 18:46 85 18 96 03/11/17 18:46 84 18 03/11/17 18:45 154/104 17 18:41 85 17 17 18:41 85 17 97 03/11/17 18:40 157/104 17 18:37 154/100 17 18:36 91 20 98 17 18:36 90 20 17 18:35 171/106 17 18:31 85 17 98 17 18:31 83 17 03/11/17 18:30 79 16 03/11/17 18:30 77 16 170/105 98 17 18:25 77 16 163/106 96 03/11/17 18:25 79 16 03/11/17 18:20 78 17 158/101 97 03/11/17 18:20 78 17 03/11/17 18:17 153/104 03/11/17 18:15 88 12 182/107 97 03/11/17 18:15 90 12 03/11/17 18:14 70 14 03/11/17 18:14 69 14 97 03/11/17 18:10 164/101 03/11/17 18:09 63 13 94 03/11/17 18:09 64 13 03/11/17 18:05 161/105 03/11/17 18:04 55 16 03/11/17 18:04 60 16 95 03/11/17 18:01 170/100 17 17:59 74 14 03/11/17 17:59 70 14 97 03/11/17 17:58 161/106 03/11/17 17:56 66 14 96 03/11/17 17:56 66 14 03/11/17 17:55 176/106 03/11/17 17:51 65 13 03/11/17 17:51 65 13 168/97 96 03/11/17 17:46 66 19 03/11/17 17:46 66 19 93 03/11/17 17:45 160/99 03/11/17 17:41 74 17 03/11/17 17:41 70 17 95 17 17:40 157/97 17 17:37 172/98 17 17:36 36.2 73 16 172/98 97 Nasal Cannula 2 03/11/17 17:36 70 19 03/11/17 17:36 68 19 96 General Appearance: WD/WN, no apparent distress Head: normocephalic, atraumatic Neck: supple Respiratory/Chest: lungs clear, normal breath sounds Cardiovascular: regular rate, rhythm Abdomen: soft, + distended (mildly), + tenderness (appropriately tender to palpation, no rebound / guarding) Incision(s): clean, dry, intact Laboratory Results: Results Past 24 Hours Test 03/12/17 05:24 Range/Units White Blood Count 9.11 4.8-10.8 K/uL Red Blood Count 5.08 4.7-6.1 M/uL Hemoglobin 15.2 14.0-18.0 g/dL Hematocrit 45.3 42-52 % Mean Corpuscular Volume 89.2 80-100 fL Mean Corpuscular Hemoglobin 29.9 25-34 pg Mean Corpuscular Hemoglobin Concent 33.6 32-36 g/dl Platelet Count 226 130-400 K/uL Mean Platelet Volume 10.0 7.4-10.4 fL Neutrophils (%) (Auto) 80.0 % Lymphocytes (%) (Auto) 13.7 % Monocytes (%) (Auto) 6.1 % Eosinophils (%) (Auto) 0.0 % Basophils (%) (Auto) 0.1 % Neutrophils # (Auto) 7.28 1.4-6.5 K/uL Lymphocytes # (Auto) 1.25 1.2-3.4 K/uL Monocytes # (Auto) 0.56 0.11-0.59 K/uL Eosinophils # (Auto) 0.00 0-0.5 K/uL Basophils # (Auto) 0.01 0-0.2 K/uL RDW Standard Deviation 41.1 36.4-46.3 fL RDW Coefficient of Variation 12.6 11.5-14.5 % Immature Granulocyte % (Auto) 0.1 % Immature Granulocyte # (Auto) 0.01 0.00-0.02 K/uL Sodium Level 137 136-145 mmol/L Potassium Level 4.2 3.5-5.1 mmol/L Chloride Level 103 98-107 mmol/L Carbon Dioxide Level 29 21-32 mmol/L Anion Gap 5.0 3-11 mmol/L Blood Urea Nitrogen 10 7-18 mg/dl Creatinine 0.92 0.60-1.40 mg/dl Est Creatinine Clear Calc Drug Dose 141.7 ml/min Estimated GFR () 122.7 Estimated GFR (Non- 105.9 BUN/Creatinine Ratio 10.5 10-20 Random Glucose 107 70-99 mg/dl Calcium Level 8.6 8.5-10.1 mg/dl Assessment & Plan Laurent Cheng is a 36 year old man who is now POD 1 s/p laparoscopic cholecystectomy. There were no complications, patient tolerated the procedure well. -Advance to regular diet as tolerated -Pain control as needed -Encourage ambulation -Keep surgical dressings in place for 4 days post op (may remove Wednesday morning and shower) -OK to discharge when tolerating regular diet, pain is controlled, and at least passing flatus -Follow up in clinic with Dr. Donohue in 2 weeks (call to make an appointment)
--- NOTE | 2017-03-12 10:21 | Discharge Instructions ---
Discharge Instructions Date of Service Mar 12, 2017. Admission Reason for Admission: Acute Cholecystitis Discharge Discharge Diagnosis / Problem: Same Discharge Goals Goal(s): Decrease discomfort, Improve function Activity Recommendations Activity Limitations: as noted below -Keep dressings in place for 4 days after surgery (may remove on the morning of 03/16/17) -After dressings are removed, you may shower - do not scrub the incisions, just let warm soapy water wash over. Do not soak, as in a bathtub or swimming pool. You have Steri-strips in place (small, white bandaids) which will fall off on their own over time. -No heavy lifting (not greater than 20lbs) for at least 2 to 4 weeks. -Do not drive until you are not taking narcotic pain medications and are completely pain free . Instructions / Follow-Up Instructions / Follow-Up -Follow up in clinic with Dr. Donohue in 2 weeks; you may call to schedule and appointment. Current Hospital Diet Patient's current hospital diet: Regular Diet Discharge Diet Recommended Diet: Regular Diet Procedures Procedures Performed: Laparoscopic Cholecystectomy Pending Studies Studies pending at discharge: yes List of pending studies: Gallbladder pathology - will be discussed at post operative appointment Medical Emergencies . Who to Call and When: Medical Emergencies: If at any time you feel your situation is an emergency, please call 911 immediately. . Non-Emergent Contact Non-Emergency issues call your: Primary Care Provider, Surgeon Call Non-Emergent contact if: you have a fever, temperature is above 101.5, your pain is not controlled, your pain is worsening, wound has increased drainage, wound has increased redness, wound has increased pain . "Provider Documentation" section prepared by Mandy Nguyen. . VTE Core Measure Inpt VTE Proph given/why not?: SCD's [place] Drug Monitoring Program Search Results: patient reviewed within database, no issues identified
[2017-03-12] MEDS ORDERED: NURSING VERBAL MED ORDER ONE (10:30)
[2017-03-12 12:07] VITALS: BP 146/91; PULSE 89; TEMP 36.8; O2SAT 98
--- NOTE | 2017-03-12 13:09 | Progress Note ---
Internal Med Progress Note Date of Service: Mar 12, 2017. Provider Documentation: SUBJECTIVE: Seen and examined at bedside. S/P cholecystectomy yesterday Pain is controlled +flatus, no BM yet Tolerated diet Denies SOB, chest pain. OBJECTIVE: Vital Signs-as noted below Physical Exam: General Appearance:Moderately built and nourished, no apparent distress Head: normocephalic, Atraumatic Eyes: normal inspection, EOMI, PERRL Neck: supple, Trachea midline Respiratory/Chest: Normal breath sounds, CTA Cardiovascular: S1, S2, No murmur Abdomen/GI:Soft, mild tender, surgical site in bandage, Bowel sounds present Extremities/Musculoskelatal:normal inspection, no edema Neurologic/Psych:grossly no focal neurological deficits Skin: normal color, warm Lab data as noted below. ASSESSMENT & PLAN: Abdominal pain secondary to Acute cholecystitis: No signs of sepsis S/P Cholecystectomy POD # 1 Appreciate surgery help Diet per surgery S/P IV fluids, Unasyn Pain controlled Tolerated diet Hypertension: not on any meds at home Monitor Follow up with PCP CARLENE S/P surgery Past tobacco abuse DVT Px: Lovenox SQ Code Status: FULL CODE Disposition: Plan to discharge home today Follow up with your Primary care physician in 1 week as advised Follow up with your surgeon in 2 weeks (call to make an appointment) Keep surgical dressings in place for 4 days post op (may remove Wednesday morning and shower) Seek immediate medical attention if your symptoms reoccur or worsen Vital Signs: Date Time Temp Pulse Resp B/P (MAP) Pulse Ox O2 Delivery O2 Flow Rate FiO2 03/12/17 12:07 36.8 89 16 146/91 (109) 98 Room Air 03/12/17 07:37 Room Air 03/12/17 07:30 36.9 85 16 139/79 (99) 97 Room Air 03/12/17 04:00 36.6 95 20 139/81 (100) 97 Room Air 03/11/17 22:15 96 20 150/88 (108) 94 Room Air 03/11/17 21:15 94 20 145/87 (106) 97 Room Air 03/11/17 21:00 Room Air 03/11/17 20:15 92 20 155/93 (113) 97 Room Air 03/11/17 19:45 92 20 152/91 (111) 98 Nasal Cannula 2.0 03/11/17 19:15 97 Nasal Cannula 2.0 03/11/17 19:15 36.8 88 18 156/92 (113) 97 Nasal Cannula 2.0 03/11/17 19:15 97 Nasal Cannula 2.0 03/11/17 19:06 89 20 97 03/11/17 19:06 89 20 03/11/17 19:05 147/94 03/11/17 19:02 37.2 03/11/17 19:01 83 18 96 03/11/17 19:01 83 18 03/11/17 19:00 155/94 03/11/17 18:57 84 16 03/11/17 18:57 83 16 98 03/11/17 18:55 146/99 03/11/17 18:52 78 19 97 03/11/17 18:52 78 19 03/11/17 18:50 151/108 03/11/17 18:47 80 17 03/11/17 18:47 79 17 96 03/11/17 18:46 85 18 96 03/11/17 18:46 84 18 03/11/17 18:45 154/104 03/11/17 18:41 85 17 03/11/17 18:41 85 17 97 03/11/17 18:40 157/104 03/11/17 18:37 154/100 03/11/17 18:36 91 20 98 03/11/17 18:36 90 20 03/11/17 18:35 171/106 03/11/17 18:31 85 17 98 03/11/17 18:31 83 17 03/11/17 18:30 79 16 03/11/17 18:30 77 16 170/105 98 03/11/17 18:25 77 16 163/106 96 03/11/17 18:25 79 16 03/11/17 18:20 78 17 158/101 97 03/11/17 18:20 78 17 03/11/17 18:17 153/104 03/11/17 18:15 88 12 182/107 97 03/11/17 18:15 90 12 03/11/17 18:14 70 14 03/11/17 18:14 69 14 97 03/11/17 18:10 164/101 03/11/17 18:09 63 13 94 03/11/17 18:09 64 13 03/11/17 18:05 161/105 03/11/17 18:04 55 16 03/11/17 18:04 60 16 95 03/11/17 18:01 170/100 03/11/17 17:59 74 14 03/11/17 17:59 70 14 97 03/11/17 17:58 161/106 03/11/17 17:56 66 14 96 03/11/17 17:56 66 14 03/11/17 17:55 176/106 03/11/17 17:51 65 13 03/11/17 17:51 65 13 168/97 96 03/11/17 17:46 66 19 03/11/17 17:46 66 19 93 03/11/17 17:45 160/99 03/11/17 17:41 74 17 03/11/17 17:41 70 17 95 03/11/17 17:40 157/97 03/11/17 17:37 172/98 03/11/17 17:36 36.2 73 16 172/98 97 Nasal Cannula 2 03/11/17 17:36 70 19 03/11/17 17:36 68 19 96 Lab Results: Results Past 24 Hours Test 03/12/17 05:24 Range/Units White Blood Count 9.11 4.8-10.8 K/uL Red Blood Count 5.08 4.7-6.1 M/uL Hemoglobin 15.2 14.0-18.0 g/dL Hematocrit 45.3 42-52 % Mean Corpuscular Volume 89.2 80-100 fL Mean Corpuscular Hemoglobin 29.9 25-34 pg Mean Corpuscular Hemoglobin Concent 33.6 32-36 g/dl Platelet Count 226 130-400 K/uL Mean Platelet Volume 10.0 7.4-10.4 fL Neutrophils (%) (Auto) 80.0 % Lymphocytes (%) (Auto) 13.7 % Monocytes (%) (Auto) 6.1 % Eosinophils (%) (Auto) 0.0 % Basophils (%) (Auto) 0.1 % Neutrophils # (Auto) 7.28 1.4-6.5 K/uL Lymphocytes # (Auto) 1.25 1.2-3.4 K/uL Monocytes # (Auto) 0.56 0.11-0.59 K/uL Eosinophils # (Auto) 0.00 0-0.5 K/uL Basophils # (Auto) 0.01 0-0.2 K/uL RDW Standard Deviation 41.1 36.4-46.3 fL RDW Coefficient of Variation 12.6 11.5-14.5 % Immature Granulocyte % (Auto) 0.1 % Immature Granulocyte # (Auto) 0.01 0.00-0.02 K/uL Sodium Level 137 136-145 mmol/L Potassium Level 4.2 3.5-5.1 mmol/L Chloride Level 103 98-107 mmol/L Carbon Dioxide Level 29 21-32 mmol/L Anion Gap 5.0 3-11 mmol/L Blood Urea Nitrogen 10 7-18 mg/dl Creatinine 0.92 0.60-1.40 mg/dl Est Creatinine Clear Calc Drug Dose 141.7 ml/min Estimated GFR () 122.7 Estimated GFR (Non- 105.9 BUN/Creatinine Ratio 10.5 10-20 Random Glucose 107 70-99 mg/dl Calcium Level 8.6 8.5-10.1 mg/dl
[2017-03-12] MEDS ORDERED: ULT50X PO (13:10)
--- NOTE | 2017-03-12 13:13 | Discharge Summary ---
Discharge Summary Date of Service Mar 12, 2017. Discharge Summary Admission Date: Mar 11, 2017 at 05:04 Discharge Date: Mar 12, 2017 Discharge Disposition: Home Principal Diagnosis: Acute Cholecystitis S/P cholecystectomy Procedures: Gall bladder USD: Question of a small amount of sludge versus artifact within the gallbladder neck. No gallstones or gallbladder wall thickening. However, the technologist reported a positive sonographic Conde's sign. Follow-up nuclear medicine HIDA scan can be performed if clinically wanted. Laparoscopic Cholecystectomy Consultations: Surgery Pending Studies/Follow-Up: Follow up with your Primary care physician in 1 week as advised Follow up with your surgeon in 2 weeks (call to make an appointment) Keep surgical dressings in place for 4 days post op (may remove Wednesday morning and shower) Seek immediate medical attention if your symptoms reoccur or worsen Medication Reconciliation New Medications: Tramadol HCl (Tramadol HCl) 50 Mg Tab 25-50 MG PO Q6H PRN for Pain for 5 Days, #15 TAB Admission Information HPI (per Admitting provider): CHIEF COMPLAINT: Abdominal pain. HISTORY OF PRESENT ILLNESS: History obtained from patient and records. Medical history significant for hypertension, past tobacco abuse, CARLENE status post surgery. Two days history of intermittent upper achy abdominal pain going to the back with some nausea. May have had a transient episode last week. Not related to food intake. No fever, no chills. Patient brought to the Emergency Room. Physical Exam (per Admitting): PHYSICAL EXAMINATION: VITAL SIGNS: Blood pressure was noted to be 160/107, later 130/90, pulse rate 70, RR 18, temperature 36.7, sats 97 on room air. GENERAL: Noted to be obese, comfortable, no respiratory distress. SKIN: Normal color. HEAD, EYES, EARS, NOSE, AND THROAT: [place] palpebral conjunctivae. Dry mucosa. NECK: Short neck. LUNGS: Decreased breath sounds. HEART: Regular rate and rhythm. ABDOMEN: No tenderness. EXTREMITIES: No edema. No tenderness. NEUROLOGIC: No gross focality. Hospital Course Abdominal pain secondary to Acute cholecystitis: No signs of sepsis S/P Cholecystectomy POD # 1 Appreciate surgery help Diet per surgery S/P IV fluids, Unasyn Pain controlled Tolerated diet Hypertension: not on any meds at home Monitor Follow up with PCP CARLENE S/P surgery Past tobacco abuse DVT Px: Lovenox SQ Code Status: FULL CODE Disposition: Plan to discharge home today Follow up with your Primary care physician in 1 week as advised Follow up with your surgeon in 2 weeks (call to make an appointment) Keep surgical dressings in place for 4 days post op (may remove Wednesday morning and shower) Seek immediate medical attention if your symptoms reoccur or worsen Total time spent on discharge = 33 minutes This includes examination of the patient, discharge planning, medication reconciliation, and communication with other providers. Discharge Instructions Discharge Instructions Date of Service Mar 12, 2017. Admission Reason for Admission: Acute Cholecystitis Discharge Discharge Diagnosis / Problem: Acute Cholecystitis S/P cholecystectomy Discharge Goals Goal(s): Decrease discomfort, Improve function Activity Recommendations Activity Limitations: per Instructions/Follow-up section Lifting Limitations: gradually increase as tolerated Exercise/Sports Limitations: gradually increase as tolerated Driving or Machine Use: Do not drive until cleared by your doctor . Instructions / Follow-Up Instructions / Follow-Up Follow up with your Primary care physician in 1 week as advised Follow up with your surgeon in 2 weeks (call to make an appointment) Keep surgical dressings in place for 4 days post op (may remove Wednesday morning and shower) Seek immediate medical attention if your symptoms reoccur or worsen Current Hospital Diet Patient's current hospital diet: Regular Diet Discharge Diet Recommended Diet: Regular Diet Procedures Procedures Performed: Laparoscopic Cholecystectomy Pending Studies Studies pending at discharge: no Medical Emergencies . Who to Call and When: Medical Emergencies: If at any time you feel your situation is an emergency, please call 911 immediately. . Non-Emergent Contact Non-Emergency issues call your: Primary Care Provider, Surgeon Call Non-Emergent contact if: you have a fever, your pain is not controlled, your pain is worsening, your pain is unusual for you, wound has increased drainage, wound has increased redness, you have any medication questions . . "Provider Documentation" section prepared by Phillip Galloway. . VTE Core Measure Inpt VTE Proph given/why not?: Enoxaparin (Lovenox)SQ, SCD's
[2017-03-12 13:23] VITALS: BP 146/91; PULSE 89; TEMP 36.8; O2SAT 98
== END 2017-03-12 13:39 | disposition home or self-care (01) | DRG 419 ==
LOC: C.EDB 23:26 → C.3E 03-11 05:04 → ENRESERV 03-11 05:11
PROVIDERS: ADMIT Internal Medicine; ATTEND Internal Medicine
PROC: 0FT44ZZ Resection of Gallbladder, Percutaneous Endoscopic Approach (ICD-10-PCS; principal; 2017-03-11 14:15)
DX: K81.0 Acute cholecystitis (principal); K83.9 Disease of biliary tract, unspecified; I10 Essential (primary) hypertension; G47.33 Obstructive sleep apnea (adult) (pediatric); Z87.891 Personal history of nicotine dependence; Z83.79 Family history of other diseases of the digestive system; Z83.3 Family history of diabetes mellitus; Z82.49 Family history of ischemic heart disease and other diseases of the circulatory system

== ENCOUNTER 2017-12-23 19:28 | Inpatient (IN) | payer OTHER ==
[~2017-12-23] VITALS: Ht 182.9 cm; Wt 117.1 kg
[~2017-12-23 19:28] MED LIST changes: -BENA20TA14 PO; -OXYC1TAB3 PO; +ULT50X PO
[2017-12-23] MEDS ORDERED: KETOROLAC TROMETHAMINE 30 MG/ML VIAL IV STA (19:44)
[2017-12-23] MEDS ORDERED: ACETAMINOPHEN 500 MG TAB PO STA (19:44)
[2017-12-23] MEDS ORDERED: SODIUM CHLORIDE 0.9% 1000ML 500 ML IV STA (19:44)
[2017-12-23] MEDS ORDERED: OPTIRAY 320 IV PRN (20:00)
[2017-12-23 20:04] LABS: HEMOGLOBIN 14.4 g/dL (14.0-18.0); MEAN CELL VOLUME 88.4 fL (80-100); MEAN CORPUSCULAR HGB CONC 35.1 g/dl (32-36); PLATELET COUNT 198 K/uL (130-400); RED CELL DISTRIBUTION WIDTH SD 41.7 fL (36.4-46.3); WHITE BLOOD COUNT 9.02 K/uL (4.8-10.8)
[2017-12-23] MEDS: MoRPHine SULFATE 4 MG/ML 1 ML CARP\\VIAL IV PRN ×4 (20:14→23:55)
--- NOTE | 2017-12-23 20:20 | DIAGNOSTIC IMAGING REPORT ---
SINGLE VIEW CHEST CLINICAL HISTORY: Atypical chest pain. FINDINGS: An AP, portable, upright chest radiograph is obtained. No prior studies are available for comparison at the time of dictation. The examination is degraded by portable technique and patient rotation. The cardiac silhouette is markedly enlarged. The pulmonary mass culture is noncongested. Trace pleural effusions are suggested. No airspace consolidation is identified. No pneumothorax is seen. The bony thorax is grossly intact. IMPRESSION: 1. There is marked enlargement of the cardiac silhouette. This could present represent true cardiomegaly versus pericardial effusion. 2. Trace pleural effusions are suspected. 3. No airspace consolidation is identified typical for pneumonia. Electronically signed by: Eren Hammond M.D. 12/23/2017 8:19 PM Dictated Date/Time: 12/23/2017 8:18 PM
[2017-12-23 20:23] LABS: PTT PATIENT 29.9 SECONDS (21.0-31.0)
[2017-12-23] MEDS ORDERED: METOPROLOL TARTRATE 1 MG/ML VIAL IV STA ×2 (20:25→20:39)
[2017-12-23 20:31] LABS: ALBUMIN 3.5 gm/dl (3.4-5.0); ALKALINE PHOSPHATASE 91 U/L (45-117); ALT/SGPT 16 U/L (12-78); AST/SGOT 15 U/L (15-37); BLOOD UREA NITROGEN 11 mg/dl (7-18); CALCIUM 8.2 mg/dl (8.5-10.1); CARBON DIOXIDE 27 mmol/L (21-32); CREATININE 1.08 mg/dl (0.60-1.40); GLUCOSE 98 mg/dl (70-99); POTASSIUM 3.4 mmol/L (3.5-5.1); SODIUM 141 mmol/L (136-145); TOTAL PROTEIN 6.9 gm/dl (6.4-8.2)
[2017-12-23] MEDS ORDERED: IBUP-1451 PO (20:48)
[2017-12-23] MEDS ORDERED: PRLSR20 PO (20:48)
[2017-12-23] MEDS ORDERED: ASPI81TA28 PO (20:48)
--- NOTE | 2017-12-23 21:09 | DIAGNOSTIC IMAGING REPORT ---
CT ANGIOGRAM OF THE CHEST CLINICAL HISTORY: Atypical chest pain. COMPARISON STUDY: Chest x-ray dated 12/23/2017. TECHNIQUE: Following the IV administration of 116 cc of Optiray 320, CT angiogram of the chest was performed from the upper abdomen to the thoracic inlet utilizing the pulmonary embolus protocol. Images are reviewed in the axial, sagittal, and coronal planes. 3-D MIPS images are created and assessed. IV contrast was administered without complication. A dose lowering technique was utilized adhering to the principles of ALARA. CT DOSE: 781.99 mGy.cm FINDINGS: Thyroid: Imaged portions of the thyroid gland are normal in size and attenuation. Thoracic aorta: The thoracic aorta is normal in caliber and demonstrates standard 3-vessel arch anatomy. No dissection is seen. Pulmonary vasculature: The pulmonary trunk is normal in caliber. There are no filling defects identified in main, lobar, or proximal segmental pulmonary branches to suggest pulmonary embolus. Evaluation of the peripheral branches is degraded by motion artifact, especially at the left lung base. Heart: The heart is enlarged and there is a small pericardial effusion. The pericardium appears thickened and there is mild surrounding inflammatory stranding. Lungs and pleural spaces: Evaluation of lung parenchyma is degraded by motion artifact. There is a small left pleural effusion with associated left basilar consolidation. The right lung appears clear. The trachea and central airways are patent. Mediastinum: There is no mediastinal lymphadenopathy. Kathie: Clear. Axillae: There is no axillary lymphadenopathy. Upper abdomen: The gallbladder is surgically absent. The liver is steatotic. A tiny hiatal hernia is noted. Skeletal structures: No lytic or blastic bony lesions are seen. IMPRESSION: 1. There is no evidence of pulmonary embolus in the main, lobar, or proximal segmental pulmonary arteries. 2. The heart is enlarged and there is a small pericardial effusion. The pericardium appears thickened with mild surrounding inflammatory change. Correlate clinically for evidence of pericarditis. 3. There is a small left pleural effusion with left basilar consolidation. This could represent atelectasis versus pneumonia. Clinical correlation will be required. 4. Hepatic steatosis. 5. Additional findings as above. Electronically signed by: Eren Hammond M.D. 12/23/2017 9:07 PM Dictated Date/Time: 12/23/2017 9:00 PM
[2017-12-23] MEDS ORDERED: COLCHICINE 0.6 MG TAB PO ONE (22:15)
--- NOTE | 2017-12-23 22:58 | EMERGENCY ROOM VISIT NOTE ---
History Report prepared by Ken: Akash Mcdonnell Under the Supervision of: Dr. Eren Cervantes M.D. First contact with patient: 19:40 Chief Complaint: CHEST PAIN Stated Complaint: CHEST AND BACK PAIN History of Present Illness The patient is a 37 year old male who presents to the Emergency Room with complaints of intermittent chest, back, and shoulder pain beginning three days ago. He currently rates his discomfort a 10/10 in severity. The patient states he has been experiencing his symptoms for the past three days, and it started when he woke up. He reports his symptoms are present when he tries to breath. The patient notes it feels like he cannot take a deep breath in because of the pain. He states it would occur in the morning, he would take ibuprofen, and it would disappear until the evening. The patient reports he was evaluated at [facility] and was told to come to the ED. He notes he had to get his kid from the bus and mow the lawn before he came to the ED. The patient states he feels this activity made his symptoms worsen. He reports his pain will start in the left side of the chest and radiate to between his shoulder blades, his back, and into his neck. The patient denies a recent long trip by plane, train, or car, a history of lung issues, a history of heart issues, a history of blood clots in the legs or lungs, fevers, coughing, sweating, nausea, vomiting, falling, and lifting anything heavy. Source of History: patient Onset: three days ago Position: chest, shoulder, back Modifying Factors (Worsening): breathing Modifying Factors (Relieving): ibuprofen Associated Symptoms: No fevers, No cough, No nausea, No vomiting Note: Associated symptoms: inability to take a deep breath Denies: lifting anything heavy, falling, sweating Review of Systems See HPI for pertinent positives & negatives. A total of 10 systems reviewed and were otherwise negative. Past Medical & Surgical Medical Problems: (1) Hypertension (2) Pericarditis Surgical Problems: (1) History of tonsillectomy Family History Diabetes mellitus Hypertension Social History Smoking Status: Never Smoker Alcohol Use: occasionally Drug Use: none Marital Status: single Occupation Status: employed Current/Historical Medications Scheduled Aspirin (Aspirin Ec), 81 MG PO TODAY Omeprazole (Prilosec), 20 MG PO DAILY Scheduled PRN Ibuprofen Tab (Motrin), 800 MG PO Q8H PRN for Pain Allergies Coded Allergies: No Known Allergies (Unverified , 03/10/17) Physical Exam Vital Signs Date Time Temp Pulse Resp B/P (MAP) Pulse Ox O2 Delivery O2 Flow Rate FiO2 12/24/17 00:16 94 19 98 Room Air 12/24/17 00:11 91 21 96 Room Air 12/24/17 00:07 87 12/24/17 00:01 134/88 12/23/17 23:41 90 20 95 Room Air 12/23/17 23:31 136/95 Room Air 12/23/17 23:11 92 16 98 Room Air 12/23/17 23:06 91 16 98 Room Air 12/23/17 23:01 128/87 12/23/17 22:36 92 19 99 Room Air 12/23/17 22:31 132/95 12/23/17 22:06 92 17 98 Room Air 12/23/17 22:01 152/96 12/23/17 22:00 86 15 99 Room Air 12/23/17 21:31 129/96 12/23/17 21:30 89 19 99 Room Air 12/23/17 21:02 87 20 144/95 99 Room Air 12/23/17 21:01 144/95 12/23/17 21:00 89 21 98 12/23/17 20:59 152/99 12/23/17 20:31 161/115 12/23/17 20:30 95 17 161/112 98 12/23/17 20:30 97 161/112 12/23/17 20:29 97 16 161/112 97 Room Air 12/23/17 20:16 106 12/23/17 19:56 96 Room Air 12/23/17 19:55 104 16 190/129 98 Room Air 12/23/17 19:51 96 Room Air 12/23/17 19:35 36.5 117 20 176/101 98 Room Air Physical Exam GENERAL: Patient is in no acute distress. HEENT: No acute trauma, normocephalic atraumatic, mucous membranes moist, no nasal congestion, no scleral icterus. NECK: No stridor, no adenopathy, no meningismus, trachea is midline. LUNGS: Clear to auscultation bilaterally, no wheeze, no rhonchi, breath sounds equal. HEART: Tachycardic rate and regular rhythm. No murmurs. ABDOMEN: Soft, nontender, bowel sounds positive, no hernias, no peritonitis. EXTREMITIES: No cyanosis or edema, full range of motion of all the joints without pain or difficulty, no signs for acute trauma. NEUROLOGIC: Oriented x 3, no acute motor or sensory deficits, no focal weakness. SKIN: No rash, no jaundice, no diaphoresis. Medical Decision & Procedures ER Provider Diagnostic Interpretation: Radiology results as stated below per my review and radiologist interpretation: CT ANGIOGRAM OF THE CHEST CLINICAL HISTORY: Atypical chest pain. COMPARISON STUDY: Chest x-ray dated 12/23/2017. TECHNIQUE: Following the IV administration of 116 cc of Optiray 320, CT angiogram of the chest was performed from the upper abdomen to the thoracic inlet utilizing the pulmonary embolus protocol. Images are reviewed in the axial, sagittal, and coronal planes. 3-D MIPS images are created and assessed. IV contrast was administered without complication. A dose lowering technique was utilized adhering to the principles of ALARA. CT DOSE: 781.99 mGy.cm FINDINGS: Thyroid: Imaged portions of the thyroid gland are normal in size and attenuation. Thoracic aorta: The thoracic aorta is normal in caliber and demonstrates standard 3-vessel arch anatomy. No dissection is seen. Pulmonary vasculature: The pulmonary trunk is normal in caliber. There are no filling defects identified in main, lobar, or proximal segmental pulmonary branches to suggest pulmonary embolus. Evaluation of the peripheral branches is degraded by motion artifact, especially at the left lung base. Heart: The heart is enlarged and there is a small pericardial effusion. The pericardium appears thickened and there is mild surrounding inflammatory stranding. Lungs and pleural spaces: Evaluation of lung parenchyma is degraded by motion artifact. There is a small left pleural effusion with associated left basilar consolidation. The right lung appears clear. The trachea and central airways are patent. Mediastinum: There is no mediastinal lymphadenopathy. Kathie: Clear. Axillae: There is no axillary lymphadenopathy. Upper abdomen: The gallbladder is surgically absent. The liver is steatotic. A tiny hiatal hernia is noted. Skeletal structures: No lytic or blastic bony lesions are seen. IMPRESSION: 1. There is no evidence of pulmonary embolus in the main, lobar, or proximal segmental pulmonary arteries. 2. The heart is enlarged and there is a small pericardial effusion. The pericardium appears thickened with mild surrounding inflammatory change. Correlate clinically for evidence of pericarditis. 3. There is a small left pleural effusion with left basilar consolidation. This could represent atelectasis versus pneumonia. Clinical correlation will be required. 4. Hepatic steatosis. 5. Additional findings as above. Electronically signed by: Eren Hammond M.D. 12/23/2017 9:07 PM Dictated Date/Time: 12/23/2017 9:00 PM SINGLE VIEW CHEST CLINICAL HISTORY: Atypical chest pain. FINDINGS: An AP, portable, upright chest radiograph is obtained. No prior studies are available for comparison at the time of dictation. The examination is degraded by portable technique and patient rotation. The cardiac silhouette is markedly enlarged. The pulmonary mass culture is noncongested. Trace pleural effusions are suggested. No airspace consolidation is identified. No pneumothorax is seen. The bony thorax is grossly intact. IMPRESSION: 1. There is marked enlargement of the cardiac silhouette. This could present represent true cardiomegaly versus pericardial effusion. 2. Trace pleural effusions are suspected. 3. No airspace consolidation is identified typical for pneumonia. Electronically signed by: Eren Hammond M.D. 12/23/2017 8:19 PM Dictated Date/Time: 12/23/2017 8:18 PM Laboratory Results 12/23/17 19:50 12/23/17 19:50 Test 12/23/17 19:50 12/23/17 20:00 Red Blood Count 4.64 M/uL (4.7-6.1) Mean Corpuscular Volume 88.4 fL (80-100) Mean Corpuscular Hemoglobin 31.0 pg (25-34) Mean Corpuscular Hemoglobin Concent 35.1 g/dl (32-36) RDW Standard Deviation 41.7 fL (36.4-46.3) RDW Coefficient of Variation 13.0 % (11.5-14.5) Mean Platelet Volume 10.0 fL (7.4-10.4) Prothrombin Time 11.0 SECONDS (9.0-12.0) Prothromb Time International Ratio 1.0 (0.9-1.1) Activated Partial Thromboplast Time 29.9 SECONDS (21.0-31.0) Partial Thromboplastin Ratio 1.2 D-Dimer 890 ug/L FEU (0-500) Anion Gap 7.0 mmol/L (3-11) Est Creatinine Clear Calc Drug Dose 124.0 ml/min Estimated GFR () 100.4 Estimated GFR (Non- 86.6 BUN/Creatinine Ratio 10.3 (10-20) Calcium Level 8.2 mg/dl (8.5-10.1) Magnesium Level 2.1 mg/dl (1.8-2.4) Total Bilirubin 0.7 mg/dl (0.2-1) Aspartate Amino Transf (AST/SGOT) 15 U/L (15-37) Alanine Aminotransferase (ALT/SGPT) 16 U/L (12-78) Alkaline Phosphatase 91 U/L (45-117) Troponin I < 0.015 ng/ml (0-0.045) Total Protein 6.9 gm/dl (6.4-8.2) Albumin 3.5 gm/dl (3.4-5.0) Globulin 3.4 gm/dl (2.5-4.0) Albumin/Globulin Ratio 1.0 (0.9-2) Thyroid Stimulating Hormone (TSH) 0.803 uIu/ml (0.300-4.500) Lyme Disease IgM Antibody NEG (NEG) Bedside Troponin I < 0.030 ng/ml (0-0.045) Laboratory results reviewed by me. Medications Administered Medications (Trade) Dose Ordered Sig/Angelica Route Start Time Stop Time Status Last Admin Dose Admin Sodium Chloride 500 ml @ 999 mls/hr Q31M STAT IV 12/23/17 19:44 12/23/17 20:14 DC 12/23/17 19:59 999 MLS/HR Ketorolac Tromethamine (Toradol Inj) 15 mg NOW STAT IV 12/23/17 19:44 12/23/17 19:47 DC 12/23/17 19:59 15 MG Acetaminophen (Tylenol Tab) 1,000 mg NOW STAT PO 12/23/17 19:44 12/23/17 19:47 DC 12/23/17 19:49 1,000 MG Morphine Sulfate (MoRPHine SULFATE INJ) 4 mg Q15M PRN IV 12/23/17 20:15 01/06/18 20:14 12/23/17 23:55 4 MG Metoprolol Tartrate (Lopressor Iv) 5 mg NOW STAT IV 12/23/17 20:25 12/23/17 20:27 DC 12/23/17 20:30 5 MG Colchicine (Colchicine Tab) 0.6 mg NOW ONCE PO 12/23/17 22:15 12/23/17 22:16 DC 12/23/17 23:08 0.6 MG Potassium Chloride (Klor-Con M10) 40 meq NOW STAT PO 12/23/17 23:35 12/23/17 23:41 DC 12/23/17 23:54 40 MEQ Calcium Gluconate 1000 mg/Sodium Chloride 60 ml @ 240 mls/hr NOW STAT IV 12/23/17 23:35 12/23/17 23:49 DC 12/23/17 23:55 240 MLS/HR ECG Per My Interpretation Indication: chest pain Rate (beats per minute): 111 Rhythm: sinus tachycardia Findings: T-wave inversion (Inferior and Lateral), other (No PVCs or ST elevation) Comparison ECG Date: 03/11/17 Change: T-wave changes are worse. Rate has increased ED Course 1940: The patient was evaluated in room C02. A complete history and physical exam was performed. 1943: Ordered Acetaminophen 1000mg PO, Toradol 15mg IV, Sodium Chloride 500 ml @ 999 mls/hr IV 2015: Ordered Morphine Sulfate 4mg IV 5: Ordered Lopressor 5mg IV 5: I updated the patient of his current test results. He is resting. 221: I discussed the patient's case with Dr. Eli, Cardiology. He states bring the patient into the hospital and suggested Colchicine. 2215: Ordered Colchicine 0.6 mg PO 2228: Upon reexamination the patient is resting. I discussed results and treatment plan with the patient. He verbalizes agreement and understanding. The patient will be evaluated for further management. 223: I spoke with Dr. Staton of the [facility] Hospitalist Service. We discussed the patient's results and findings. The patient will be evaluated for further management. 2347: The patient's care is being transferred to the [facility]. 2349: I discussed the patient's case with Dr. Emery, [facility]. The patient will be evaluated for further management and care. Medical Decision The patient is a 37 year old male who presents to the ED with complaints of intermittent chest, back, and shoulder pain. Differential diagnoses considered include PE, aortic dissection, pneumonia, pneumothorax, musculoskeletal pain, angina, DC. There is no leukocytosis or worrisome anemia. No significant electrolyte abnormality, kidney failure or hepatitis. There is no coagulopathy. EKG shows a sinus tachycardia with inverted T waves in the inferior and lateral leads. These EKG findings were new. Cardiac troponin testing was negative. Chest film showed cardiomegaly, no pneumonia or pneumothorax. D-dimer testing was positive. Chest CT shows cardiomegaly and possible pericarditis with a small pleural effusion. No PE, no evidence for aortic dissection. Atelectasis was suggested in the lower lung. The patient received IV Toradol, IV saline, IV morphine. He received oral Tylenol. He was given oral colchicine after I discussed the case with cardiology. He did receive IV Lopressor, one dose was given to help the heart rate and to help the blood pressure. The patient is feeling improved with the above treatment. His heart rate and blood pressure are better controlled. I did discuss the case, as mentioned above, with cardiology. A hospital stay was recommended, colchicine was recommended. I talked with the patient and case management. The on-call hospitalist was consulted. Patient does require further cardiac workup for his presentation and findings. He may have pericarditis as the cause for his symptoms, this is the reason for the colchicine. Medication Reconcilliation Current Medication List: was personally reviewed by me Blood Pressure Screening Patient's blood pressure: Elevated blood pressure Monitored by hospitalist. Consults Time Called: 2207 Consulting Physician: Dr. Eli, Cardiology Returned Call: 2210 I discussed the patient's case with Dr. Eli, Cardiology. He states bring the patient into the hospital and suggested Colchicine. Additional Consults: Consulted Physician: Dr. Staton of the [facility] Hospitalist Service Returned Call: 2230 Additional Comments: I spoke with Dr. Staton of the [facility] Hospitalist Service. We discussed the patient's results and findings. The patient will be evaluated for further management. Time Called: 2347 Consulted Physician: [facility] Returned Call: 2348 Additional Comments: I discussed the patient's case with [facility]. The patient will be evaluated for further management and care. Impression Primary Impression: Pleuritic chest pain Additional Impressions: HTN (hypertension) Tachycardia Cardiomegaly Scribe Attestation The scribe's documentation has been prepared under my direction and personally reviewed by me in its entirety. I confirm that the note above accurately reflects all work, treatment, procedures, and medical decision making performed by me. Departure Information Dispostion Being Evaluated By Hospitalist Referrals Que Jiang (PCP) Patient Instructions My [facility] Problem Qualifiers
[2017-12-23] MEDS ORDERED: CALCIUM GLUCONATE 10% 1,000 MG in SODIUM CHLORIDE 0.9% 50ML 50 ML IV STA (23:35)
[2017-12-23] MEDS ORDERED: POTASSIUM CHLORIDE 10 MEQ TABCR PO STA (23:35)
[2017-12-24] VITALS (9 sets, daily range): BP systolic 133–188; BP diastolic 81–106; PULSE 87–111; TEMP 36.3–37.7; O2SAT 95–97; Ht 182.9 cm; Wt 117.1 kg
[2017-12-24] MEDS ORDERED: KETOROLAC TROMETHAMINE 30 MG/ML VIAL IV STA (00:27)
[2017-12-24] MEDS ORDERED: IBUPROFEN 200 MG TAB PO PRN (01:00)
[2017-12-24] MEDS ORDERED: PROCHLORPERAZINE INJ 5 MG in SYRINGE 4 ML IV PRN (01:00)
[2017-12-24] MEDS ORDERED: KETOROLAC TROMETHAMINE 30 MG/ML VIAL IV PRN (01:00)
[2017-12-24] MEDS ORDERED: HYDROmorphone INJ 0.5 MG/0.5 ML SYR IV PRN (01:00)
[2017-12-24] MEDS ORDERED: LORAZEPAM 2 MG/ML 1 ML VIAL IV PRN (01:00)
[2017-12-24] MEDS ORDERED: ACETAMINOPHEN 325 MG TAB PO PRN (01:00)
[2017-12-24] MEDS ORDERED: LACTATED RINGER'S 1000ML 1,000 ML IV ONE (02:00)
[2017-12-24 06:02] LABS: BASO % 0.1 %; BASO ABS # 0.01 K/uL (0-0.2); EOS % 3.5 %; EOS ABS # 0.28 K/uL (0-0.5); HEMATOCRIT 39.3 % (42-52); HEMOGLOBIN 13.3 g/dL (14.0-18.0); IG# 0.02 K/uL (0.00-0.02); LYMPH % 19.5 %; LYMPH ABS # 1.58 K/uL (1.2-3.4); MEAN CELL VOLUME 90.1 fL (80-100); MEAN CORPUSCULAR HEMOGLOBIN 30.5 pg (25-34); MEAN CORPUSCULAR HGB CONC 33.8 g/dl (32-36); MEAN PLATELET VOLUME 10.1 fL (7.4-10.4); MONO ABS # 0.97 K/uL (0.11-0.59); NEUT % 64.7 %; NEUT ABS # 5.23 K/uL (1.4-6.5); PLATELET COUNT 179 K/uL (130-400); RED CELL DISTRIBUTION WIDTH CV 13.2 % (11.5-14.5); RED CELL DISTRIBUTION WIDTH SD 43.5 fL (36.4-46.3); WHITE BLOOD COUNT 8.09 K/uL (4.8-10.8)
[2017-12-24 06:27] LABS: BLOOD UREA NITROGEN 11 mg/dl (7-18); CALCIUM 8.1 mg/dl (8.5-10.1); CARBON DIOXIDE 29 mmol/L (21-32); CREATININE 0.87 mg/dl (0.60-1.40); GLUCOSE 99 mg/dl (70-99); SODIUM 140 mmol/L (136-145)
[2017-12-24] MEDS: COLCHICINE 0.6 MG TAB PO SCH ×2 (07:33→21:27)
[2017-12-24] MEDS: PANTOprazole SOD 40 MG TAB PO SCH (07:34)
--- NOTE | 2017-12-24 08:44 | HISTORY & PHYSICAL EXAMINATION ---
DATE OF ADMISSION: 12/23/2017 PRIMARY CARE DOCTOR: Dr. Que Jiang. CHIEF COMPLAINT: Chest pain. HISTORY OF PRESENT ILLNESS: History obtained from patient and records. Medical history significant for hypertension, past tobacco abuse, CARLENE status post surgery. Recent confinement March 2017 for cholecystitis sp cholecystectomy. A few days history of pleuritic chest pain going to the back. No flu-like symptoms. Denies tick bites. No cough. Some shortness of breath. No fever and chills. No trauma. Brought to the Emergency Room. CT chest showed no PE, cardiac enlargement, small pericardial effusion, pericarditis, small left pleural effusion with left basilar consolidation, hepatosteatosis. Patient received Colchicine in the ER. MEDICAL HISTORY: As above. There is no trauma. SURGERIES: Cholecystectomy, uvulopalatopharyngoplasty. HOME MEDICATIONS: Ibuprofen p.r.n., Prilosec. 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 REVIEW OF SYSTEMS: As per HPI. All 10 systems reviewed. All other ROS negative. PHYSICAL EXAMINATION: VITAL SIGNS: Blood pressure was noted to be 139/95, pulse rate 92, RR 16, temperature 36.7, sats 98RA GENERAL: Obese. Uncomfortable, no respiratory distress SKIN: Normal color, warm. HEENT: Yetter palpebral conjunctivae. No ptosis. Dry mucosa. NECK: Short and supple. CHEST: Decreased breath sounds. No tenderness. HEART: Regular rate and rhythm. No murmur. ABDOMEN: Some distention and non tender. EXTREMITIES: No edema. No gross deformities. No tenderness. NEUROLOGIC: Coherent. No gross focality. LABORATORY DATA: Hemoglobin 14, hematocrit 41, white cells 9, platelets 198. Sodium noted to be 141, potassium 3.4, chloride 107, CO2 of 27, BUN 11, creatinine 1, glucose 98, troponin negative. CT chest as above. EKG as per my interpretation, rate 110, sinus tachycardia, T-wave inversion on the inferior leads. ASSESSMENT: 1. Acute pericarditis/pericardial effusion No obvious etio for now 2. History of hypertension, not requiring meds since sleep apnea surgery BP slightly elevated 3. past tobacco abuse. 4. hypokalemia. PLAN: PCU baseline ESR, CRP NSAIDs prn analgesia TTE RE pericarditis/pericardial effusion colchicine as per [facility] Cardio recommendations. (ER provider already in touch with Dr. Eli.) Replace potassium. DVT prophylaxis SCDs Full code. MTDD
[2017-12-24] MEDS ORDERED: COLCHICINE 0.6 MG TAB PO SCH (09:00)
--- NOTE | 2017-12-24 10:36 | ECHOCARDIOGRAM REPORT ---
*NOTICE TO RECEIVING CONSTITUTION PARTY AGENCY This information is strictly Confidential and protected under [place] law. [place] law prohibits you from making any further disclosure of this information unless further disclosure is expressly permitted by the written consent of the person to whom it pertains or is authorized by law. A general authorization for the release of medical or other information is not sufficient for this purpose. Hospital accepts no responsibility if the information is made available to any other person, INCLUDING THE PATIENT. Interpretation Summary * Name: JACINTO VENEGAS Study Date: 12/24/2017 06:44 AM BP: 173/96 mmHg * Patient Location: C.2T\S\S229\S\1 HR: 86 * : 1980 (M/d/yyyy) Gender: Male Height: 72 in * Age: 37 yrs Ethnicity: [place] Weight: 264 lb * Ordering Physician: Piotr Emery * Referring Physician: Self, Referred * Performed By: [facility] Mondragon [facility] * * Reason For Study: CHEST PAIN * BSA: 2.4 m2 * -- Conclusions -- * 1. Normal left ventricular size and systolic function. Estimated EF 55-60%. No regional wall motion abnormalities. Mild concentric left ventricular hypertrophy. * 2. The right ventricle is mildly dilated. The right ventricular systolic function is normal as assessed by tricuspid annular plane systolic excursion (TAPSE) (normal >1.5 cm). * 3. Small pericardial effusion with echogenic fibrinous component, but without echocardiographic evidence of tamponade physiology. * 4. No significant valvular abnormalities. * 5. Normal estimated right ventricular systolic pressure; 24mmHg. * 6. No prior study available for comparison. Procedure Details * A complete two-dimensional transthoracic echocardiogram was performed (2D, M-mode, Doppler and color flow Doppler). * The study was technically difficult. * A contrast injection of Definity was performed to improve assessment of LV function. * Contrast was injected into an intravenous site in the right arm. * One vial of Definity ultrasound contrast was diluted in normal saline to a total volume of 10 ml. A total of '3' ml of solution was administered during imaging. * Lot # [id number] of Definity utilized for procedure. * Expiration date NOV 25. Left Ventricle * Normal left ventricular size and systolic function. Estimated EF 55-60%. No regional wall motion abnormalities. Mild concentric left ventricular hypertrophy. Right Ventricle * The right ventricle is mildly dilated. * The right ventricular systolic function is normal as assessed by tricuspid annular plane systolic excursion (TAPSE) (normal >1.5 cm). Atria * The left atrium is small. * Right atrial size is normal. * There is no evidence of atrial septal defect, but resolution does not allow assessment for a patent foramen ovale. Mitral Valve * The mitral valve is grossly normal. * There is no mitral valve stenosis. * There is trace mitral regurgitation. Tricuspid Valve * The tricuspid valve is not well visualized, but is grossly normal. * There is no tricuspid stenosis. * There is mild tricuspid regurgitation. Aortic Valve * The aortic valve is trileaflet. * No hemodynamically significant valvular aortic stenosis. * There is no significant aortic regurgitation. Pulmonic Valve * The pulmonary valve is inadequately visualized, but the Doppler data is adequate for interpretation. * There is no pulmonic valvular stenosis. * Mild pulmonic valvular regurgitation. Great Vessels * The aortic root is normal size. * Aortic arch of normal dimension. Pericardium/Pleural * Small pericardial effusion with echogenic fibrinous component, but without echocardiographic evidence of tamponade physiology. Great Vessels * Mildly dilated IVC with normal inspiratory collapse. MMode 2D Measurements and Calculations IVSd 1.3 cm IVSs 1.9 cm LVIDd 4.6 cm LVIDs 2.9 cm LVPWd 1.3 cm LVPWs 1.8 cm IVS/LVPW 0.96 FS 35.5 % EDV(Teich) 95.0 ml ESV(Teich) 33.2 ml EF(Teich) 65.1 % EDV(cubed) 94.4 ml ESV(cubed) 25.3 ml EF(cubed) 73.2 % % IVS thick 52.3 % % LVPW thick 35.6 % LV mass(C)d 227.5 grams LV mass(C)dI 94.9 grams/m\S\2 LV mass(C)s 227.9 grams LV mass(C)sI 95.1 grams/m\S\2 SV(Teich) 61.8 ml SI(Teich) 25.8 ml/m\S\2 SV(cubed) 69.1 ml SI(cubed) 28.8 ml/m\S\2 Ao root diam 3.8 cm Ao root area 11.4 cm\S\2 ACS 2.4 cm LVOT diam 2.1 cm LVOT area 3.6 cm\S\2 Doppler Measurements and Calculations MV E max jimy 110.0 cm/sec MV P1/2t max jimy 117.3 cm/sec MV P1/2t 98.4 msec MVA(P1/2t) 2.2 cm\S\2 MV dec slope 349.4 cm/sec\S\2 MV dec time 0.21 sec Ao V2 max 135.5 cm/sec Ao max PG 7.3 mmHg Ao max PG (full) 3.0 mmHg PROSPER(V,A) 2.8 cm\S\2 PROSPER(V,D) 2.8 cm\S\2 LV V1 max PG 4.4 mmHg LV V1 max 104.4 cm/sec PA V2 max 107.8 cm/sec PA max PG 4.7 mmHg TR max jimy 200.2 cm/sec RVSP(TR) 24.0 mmHg RAP systole 8.0 mmHg
--- NOTE | 2017-12-24 12:30 | Cardiology Consultation ---
Cardiology Consultation Date of Consultation: December 24, 2017. Requesting Physician: Dr. Emery Attending Physician: Dr. Navarro Reason for Consultation: Chest pain Pt evaluation today including: conversation w/ patient, physical exam, chart review, lab review, review of studies, review of inpatient medication list, conversation w/ attending History of Present Illness Mr. Cheng is a 37-year-old male with a past medical history significant for hypertension (currently off medications) and CARLENE s/p uvulopalatopharyngoplasty who presented to the ED yesterday evening with complaints of worsening chest and back pain. The patient reports that on Wednesday, he developed sharp chest pain radiating into his back. The discomfort is more so on the left side of his chest and back and radiates into his bilateral shoulder blades and into his neck at times. The discomfort is worse with taking deep breaths and when exerting himself. Over the last couple of days, it has also been worse when lying flat and is better when sitting up. He notes shortness of breath with exertion as well, primarily because the pain is worse with deep breathing. He has also noted an associated headache with his symptoms. He has been taking Ibuprofen intermittently since Wednesday for the discomfort. It did provide relief initially, but the pain continued to worsen yesterday with no significant relief from the NSAID. He therefore went to an Urgent Care Center for further evaluation. He was advised to come to the ED for further evaluation. ECG in the ED showed sinus tachycardia with new T wave inversions in the inferior leads. Cardiac enzymes have been negative. Chest x-ray showed marked enlargement of the cardiac silhouette. Chest CTA showed no evidence of PE, but there was cardiac enlargement, small pericardial effusion, and thickening of the pericardium. He has been treated with IV Toradol, IV morphine, Ibuprofen, and Tylenol for pain relief. He has also been given Colchicine. He was also noted to be hypertensive and tachycardic and was treated with IV Lopressor. The patient reports that he initially felt well this morning, but the pain is starting to return. He has not had a recent illness and denies any congestion, cough, wheezing, fevers, or chills. He denies lightheadedness, syncope, or presyncope. He denies abnormal bleeding such as melena, hematochezia, or hematuria. He denies cerebrovascular symptoms. He denies GI or symptoms. Review of Systems: As noted in HPI. All other ROS are reviewed and otherwise negative at this time. Past Medical/Surgical History 1. History of hypertension- not currently on any antihypertensive medications 2. CARLENE s/p uvulopalatopharyngoplasty in 2012 3. Laparoscopic cholecystectomy in March 2017 Family History Diabetes mellitus Hypertension Father has a pacemaker. Paternal uncle with a valve replacement and "enlarged heart." Maternal grandmother with an AK in her 80s. Social History Smoking Status: Current Some Day Smoker History of Alcohol Use: Yes (BEER, "OCCASIONALLY") He is not but lives with his girlfriend. He has one biological son. 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 He denies smoking. He notes occasional alcohol use. He denies illicit drug use. Allergies Coded Allergies: No Known Allergies (Unverified , 03/10/17) Medications Current Inpatient Medications Medications (Trade) Dose Ordered Sig/Angelica Route Start Time Stop Time Status Last Admin Dose Admin Ioversol (Optiray 320) 100 ml UD PRN IV 12/23/17 20:00 12/27/17 19:59 Ibuprofen (Advil Tab) 400 mg Q6H PRN PO 12/24/17 01:00 01/23/18 00:59 12/24/17 04:13 400 MG Prochlorperazine Edisylate 5 mg/ Syringe 5 ml @ 5 mls/min Q6H PRN IV 12/24/17 01:00 01/23/18 00:59 Lorazepam (Ativan Inj) 0.5 mg Q4H PRN IV 12/24/17 01:00 01/23/18 00:59 Hydromorphone HCl (Dilaudid Inj) 1 mg Q4H PRN IV 12/24/17 01:00 01/07/18 00:59 Lactated Ringer's 1,000 ml @ 75 mls/hr [id number] ONCE IV 12/24/17 02:00 12/24/17 15:19 12/24/17 01:13 75 MLS/HR Acetaminophen (Tylenol Tab) 650 mg Q4H PRN PO 12/24/17 01:00 01/23/18 00:59 Pantoprazole Sodium (Protonix Tab) 40 mg QAM PO 12/24/17 09:00 01/23/18 08:59 12/24/17 07:34 40 MG Ketorolac Tromethamine (Toradol Inj) 30 mg Q6H PRN IV 12/24/17 01:00 12/29/17 00:59 Colchicine (Colchicine Tab) 0.6 mg BID PO 12/24/17 09:00 01/23/18 08:59 12/24/17 07:33 0.6 MG Physical Exam Vital Signs Past 12 Hours Date Time Temp Pulse Resp B/P (MAP) Pulse Ox O2 Delivery O2 Flow Rate FiO2 12/24/17 08:13 Room Air 12/24/17 06:44 36.8 99 16 173/96 (121) 96 Room Air 12/24/17 04:30 36.8 87 16 143/93 (110) 96 Room Air 12/24/17 04:02 Room Air 12/24/17 00:45 36.7 87 20 160/105 97 Room Air 12/24/17 00:45 Room Air 12/24/17 00:16 94 19 98 Room Air 12/24/17 00:11 91 21 96 Room Air 12/24/17 00:07 87 12/24/17 00:01 134/88 12/23/17 23:41 90 20 95 Room Air 12/23/17 23:31 136/95 Room Air 12/23/17 23:11 92 16 98 Room Air 12/23/17 23:06 91 16 98 Room Air 12/23/17 23:01 128/87 12/23/17 22:36 92 19 99 Room Air 12/23/17 22:31 132/95 12/23/17 22:06 92 17 98 Room Air 12/23/17 22:01 152/96 12/23/17 22:00 86 15 99 Room Air 12/23/17 21:31 129/96 12/23/17 21:30 89 19 99 Room Air Constitutional: Alert, oriented, in no acute distress HEENT: Head is atraumatic and normocephalic. EOMs intact. Sclera anicteric. Face is symmetric. No perioral cyanosis. Mucous membranes moist. Neck: Supple, no JVD, no carotid bruits Chest: Nontender upon palpation Pulmonary: Normal respiratory effort, clear to auscultation bilaterally Cardiac: Regular rate and rhythm, normal S1 and S2, no gallops, no rubs, no murmurs Extremities: No clubbing, cyanosis, or edema. Pulses 2+ and symmetric Abdomen: Normal bowel sounds, soft, non-tender, no abdominal mass palpated Skin: Normal skin color, turgor, and pigmentation, no rash, no skin lesions Neurological: Oriented to person, place, and time Data Laboratory Results: Last 24 Hours Test 12/23/17 19:50 12/23/17 20:00 12/24/17 05:01 White Blood Count 9.02 K/uL 8.09 K/uL Red Blood Count 4.64 M/uL 4.36 M/uL Hemoglobin 14.4 g/dL 13.3 g/dL Hematocrit 41.0 % 39.3 % Mean Corpuscular Volume 88.4 fL 90.1 fL Mean Corpuscular Hemoglobin 31.0 pg 30.5 pg Mean Corpuscular Hemoglobin Concent 35.1 g/dl 33.8 g/dl RDW Standard Deviation 41.7 fL 43.5 fL RDW Coefficient of Variation 13.0 % 13.2 % Platelet Count 198 K/uL 179 K/uL Mean Platelet Volume 10.0 fL 10.1 fL Prothrombin Time 11.0 SECONDS Prothromb Time International Ratio 1.0 Activated Partial Thromboplast Time 29.9 SECONDS Partial Thromboplastin Ratio 1.2 D-Dimer 890 ug/L FEU Sodium Level 141 mmol/L 140 mmol/L Potassium Level 3.4 mmol/L 4.0 mmol/L Chloride Level 107 mmol/L 106 mmol/L Carbon Dioxide Level 27 mmol/L 29 mmol/L Anion Gap 7.0 mmol/L 5.0 mmol/L Blood Urea Nitrogen 11 mg/dl 11 mg/dl Creatinine 1.08 mg/dl 0.87 mg/dl Est Creatinine Clear Calc Drug Dose 124.0 ml/min 152.8 ml/min Estimated GFR () 100.4 126.9 Estimated GFR (Non- 86.6 109.5 BUN/Creatinine Ratio 10.3 12.8 Random Glucose 98 mg/dl 99 mg/dl Calcium Level 8.2 mg/dl 8.1 mg/dl Magnesium Level 2.1 mg/dl Total Bilirubin 0.7 mg/dl Aspartate Amino Transf (AST/SGOT) 15 U/L Alanine Aminotransferase (ALT/SGPT) 16 U/L Alkaline Phosphatase 91 U/L Troponin I < 0.015 ng/ml < 0.015 ng/ml Total Protein 6.9 gm/dl Albumin 3.5 gm/dl Globulin 3.4 gm/dl Albumin/Globulin Ratio 1.0 Thyroid Stimulating Hormone (TSH) 0.803 uIu/ml Lyme Disease IgM Antibody NEG Bedside Troponin I < 0.030 ng/ml Neutrophils (%) (Auto) 64.7 % Lymphocytes (%) (Auto) 19.5 % Monocytes (%) (Auto) 12.0 % Eosinophils (%) (Auto) 3.5 % Basophils (%) (Auto) 0.1 % Neutrophils # (Auto) 5.23 K/uL Lymphocytes # (Auto) 1.58 K/uL Monocytes # (Auto) 0.97 K/uL Eosinophils # (Auto) 0.28 K/uL Basophils # (Auto) 0.01 K/uL Immature Granulocyte % (Auto) 0.2 % Immature Granulocyte # (Auto) 0.02 K/uL Erythrocyte Sedimentation Rate 12 mm/hr C-Reactive Protein 10.40 mg/dl Chest CTA: 1. There is no evidence of pulmonary embolus in the main, lobar, or proximal segmental pulmonary arteries. 2. The heart is enlarged and there is a small pericardial effusion. The pericardium appears thickened with mild surrounding inflammatory change. Correlate clinically for evidence of pericarditis. 3. There is a small left pleural effusion with left basilar consolidation. This could represent atelectasis versus pneumonia. Clinical correlation will be required. 4. Hepatic steatosis. 5. Additional findings as above. Chest x-ray: 1. There is marked enlargement of the cardiac silhouette. This could present represent true cardiomegaly versus pericardial effusion. 2. Trace pleural effusions are suspected. 3. No airspace consolidation is identified typical for pneumonia. ECG: sinus tachycardia with T wave inversion in the inferior leads, which was new compared to a prior ECG in 2017. Telemetry reviewed: Sinus rhythm Echocardiogram: 1. Normal left ventricular size and systolic function. Estimated EF 55-60%. No regional wall motion abnormalities. Mild concentric left ventricular hypertrophy. 2. The right ventricle is mildly dilated. The right ventricular systolic function is normal as assessed by tricuspid annular plane systolic excursion ( TAPSE) (normal >1.5 cm). 3. Small pericardial effusion with echogenic fibrinous component, but without echocardiographic evidence of tamponade physiology. 4. No significant valvular abnormalities. 5. Normal estimated right ventricular systolic pressure; 24mmHg. Assessment & Plan The patient was discussed with Dr. Navarro who will also be in to see the patient later today. Please refer to his plan as outlined below. Addendum by Cardiology attending: Patient was seen and examined. Agree with above with following additions. He describes a pleuritic chest discomfort that is located centrally, but left greater than right. It occurs with inspiration and improved with holding his breath or expiration. It is worse when laying down and much better when sitting upright. He denies shortness of breath, syncope, palpitations. He denies any recent viral prodrome. He is coughing today but states that occurred after drinking fluid and that it went down the wrong pipe. History reviewed. He stop taking antihypertensive medications in 2012 and does not follow up with a primary care physician regularly. He denies drugs or significant alcohol. Exam notable for: Generally: No acute distress. Alert and oriented. Cardiac: No audible murmur, rub, or gallop. Regular. Normal S1 and S2. Lungs: Clear. Extremities: No edema. No palpable cords. No cyanosis. Echo and ECG personally reviewed. ASSESSMENT/PLAN: 1. Pericarditis: Symptoms suggest pericarditis. He does have a small pericardial effusion. Recommend ibuprofen 600 mg 3 times daily with food around the clock for 1-2 weeks and then 3 times daily on an as-needed basis. Colchicine 0.6 mg twice daily for 3 months without interruption. We discussed the importance of this to help prevent recurrence. 2. Hypertension: Blood pressure remains quite elevated. He tolerated lisinopril in the past. Start lisinopril 5 mg daily. He currently has a cough , which predates lisinopril initiation. Titrate medication as appropriate. 3. Pericardial effusion: Etiology uncertain. He does not recall having a recent viral illness. Repeat echocardiogram as an outpatient. He does not appear to be an tamponade physiology clinically. 4. Tachycardia: Asymptomatic. He appears to be in sinus rhythm. Monitor. 5. Disposition: Follow-up in 1-2 weeks in Cardiology. Appointment is being made for him. Plan of care has been discussed with Dr. Griggs other primary hospitalist service. Call if any other questions or concerns. I will be away from the hospital for the next [address] Eli will be available. Thank you for allowing me to participate in the care of your patient. Please call for any other questions or concerns. Sincerely, Dennis Navarro M.D.
[2017-12-24] MEDS ORDERED: LISINOPRIL 5 MG TAB PO ONE (16:15)
--- NOTE | 2017-12-24 19:44 | Progress Note ---
Internal Med Progress Note Date of Service: December 24, 2017. Provider Documentation: SUBJECTIVE: The patient was seen and examined in telemetry unit He was admitted with them possible pericarditis with chest pain Chest pain started about 1 week ago, the pain aggravates with change in posture and also cough No history of viral syndrome before No fever, chills or any symptoms involving joints OBJECTIVE: Vital Signs-as noted below Exam: General-no apparent distress at rest but anxious Eyes-normal ENT-normal Neck-supple Lungs-clear to auscultate bilaterally Heart-regular, no bruit or pericardial rub Abdomen-benign Extremities-no edema Neuro-alert, awake and oriented No focal neuro deficit Lab data as noted below. ASSESSMENT & PLAN: Acute pericarditis/pericardial effusion No obvious etiology for now No significant EKG and or EKG changes Appreciate Cardiology input NSAID and Colchicine History of hypertension, not requiring meds since sleep apnea surgery BP slightly elevated ACEI added Past tobacco abuse. DVT prophylaxis SCDs Code Status:Full Vital Signs: Date Time Temp Pulse Resp B/P (MAP) Pulse Ox O2 Delivery O2 Flow Rate FiO2 12/25/17 06:25 36.6 92 16 143/97 (112) 96 Room Air 12/25/17 04:17 Room Air 12/25/17 03:13 36.5 97 16 134/81 (98) 93 Room Air 12/25/17 00:15 Room Air 12/24/17 23:23 36.3 110 18 133/88 (103) 96 Room Air 12/24/17 20:00 Room Air 12/24/17 19:21 37.7 102 18 155/96 (115) 95 Room Air 12/24/17 17:23 111 150/102 (118) 12/24/17 16:00 95 Room Air 12/24/17 15:06 37.1 99 20 188/81 (116) 95 Room Air 12/24/17 12:01 Room Air 12/24/17 11:49 36.4 103 24 166/106 (126) 97 Room Air 12/24/17 08:13 Room Air Lab Results: Results Past 24 Hours Test 12/25/17 05:15 Range/Units White Blood Count 8.24 4.8-10.8 K/uL Red Blood Count 4.55 4.7-6.1 M/uL Hemoglobin 14.0 14.0-18.0 g/dL Hematocrit 40.6 42-52 % Mean Corpuscular Volume 89.2 80-100 fL Mean Corpuscular Hemoglobin 30.8 25-34 pg Mean Corpuscular Hemoglobin Concent 34.5 32-36 g/dl RDW Standard Deviation 42.2 36.4-46.3 fL RDW Coefficient of Variation 12.9 11.5-14.5 % Platelet Count 213 130-400 K/uL Mean Platelet Volume 10.4 7.4-10.4 fL Sodium Level 138 136-145 mmol/L Potassium Level 3.7 3.5-5.1 mmol/L Chloride Level 104 98-107 mmol/L Carbon Dioxide Level 28 21-32 mmol/L Anion Gap 6.0 3-11 mmol/L Blood Urea Nitrogen 11 7-18 mg/dl Creatinine 0.90 0.60-1.40 mg/dl Est Creatinine Clear Calc Drug Dose 147.0 ml/min Estimated GFR () 125.1 Estimated GFR (Non- 108.0 BUN/Creatinine Ratio 11.8 10-20 Random Glucose 89 70-99 mg/dl Calcium Level 8.7 8.5-10.1 mg/dl Magnesium Level 2.1 1.8-2.4 mg/dl
[2017-12-24] MEDS: IBUPROFEN 600 MG TAB PO SCH (21:06)
[2017-12-25 03:13] VITALS: BP 134/81; PULSE 97; TEMP 36.5; O2SAT 93
[2017-12-25 06:25] VITALS: BP 143/97; PULSE 92; TEMP 36.6; O2SAT 96
[2017-12-25 06:25] LABS: HEMATOCRIT 40.6 % (42-52); MEAN CELL VOLUME 89.2 fL (80-100); MEAN CORPUSCULAR HEMOGLOBIN 30.8 pg (25-34); MEAN CORPUSCULAR HGB CONC 34.5 g/dl (32-36); MEAN PLATELET VOLUME 10.4 fL (7.4-10.4); PLATELET COUNT 213 K/uL (130-400); RED CELL DISTRIBUTION WIDTH CV 12.9 % (11.5-14.5); RED CELL DISTRIBUTION WIDTH SD 42.2 fL (36.4-46.3); WHITE BLOOD COUNT 8.24 K/uL (4.8-10.8)
[2017-12-25 06:43] LABS: CALCIUM 8.7 mg/dl (8.5-10.1); CREATININE 0.9 mg/dl (0.60-1.40); POTASSIUM 3.7 mmol/L (3.5-5.1)
[2017-12-25] MEDS: PANTOprazole SOD 40 MG TAB PO SCH (08:44)
[2017-12-25] MEDS: IBUPROFEN 600 MG TAB PO SCH (08:44)
[2017-12-25] MEDS ORDERED: LISINOPRIL 5 MG TAB PO SCH (09:00)
[2017-12-25] MEDS: COLCHICINE 0.6 MG TAB PO SCH (09:40)
--- NOTE | 2017-12-25 11:04 | Progress Note ---
Internal Med Progress Note Date of Service: December 25, 2017. Provider Documentation: SUBJECTIVE: The patient was seen and examined in telemetry unit He was admitted with them possible pericarditis with chest pain Chest pain started about 1 week ago, the pain aggravates with change in posture and also cough No history of viral syndrome before No fever, chills or any symptoms involving joints 12/25 No more Chest pain BP is controlled Denies any other symptoms OBJECTIVE: Vital Signs-as noted below Exam: General-no apparent distress at rest but anxious Eyes-normal ENT-normal Neck-supple Lungs-clear to auscultate bilaterally Heart-regular, no bruit or pericardial rub Abdomen-benign Extremities-no edema Neuro-alert, awake and oriented No focal neuro deficit Lab data as noted below. ASSESSMENT & PLAN: Acute pericarditis/pericardial effusion No obvious etiology for now No significant EKG and or EKG changes CTA-Negative for any Pulmonary embolism Appreciate Cardiology input ECHO:: * 1. Normal left ventricular size and systolic function. Estimated EF 55-60%. No regional wall motion abnormalities. Mild concentric left ventricular hypertrophy. * 2. The right ventricle is mildly dilated. The right ventricular systolic function is normal as assessed by tricuspid annular plane systolic excursion ( TAPSE) (normal >1.5 cm). * 3. Small pericardial effusion with echogenic fibrinous component, but without echocardiographic evidence of tamponade physiology. * 4. No significant valvular abnormalities. * 5. Normal estimated right ventricular systolic pressure; 24mmHg. * 6. No prior study available for comparison. NSAID and Colchicine::Recommend ibuprofen 600 mg 3 times daily with food around the clock for 1-2 weeks and then 3 times daily on an as-needed basis. Colchicine 0.6 mg twice daily for 3 months without interruption EKG-Questionable lateral Ischemic changes Likely the reflection of Pericarditis Discussed with Dr Sotelo Will discharge home today History of hypertension, not requiring meds since sleep apnea surgery BP slightly elevated ACEI added BP is controlled H/O CARLENE Not on any CPAP/BIPAP Seems stable Past tobacco abuse. DVT prophylaxis SCDs Code Status:Full Vital Signs: Date Time Temp Pulse Resp B/P (MAP) Pulse Ox O2 Delivery O2 Flow Rate FiO2 12/25/17 08:00 Room Air 12/25/17 06:25 36.6 92 16 143/97 (112) 96 Room Air 5/19/18 04:17 Room Air 12/25/17 03:13 36.5 97 16 134/81 (98) 93 Room Air 12/25/17 00:15 Room Air 12/24/17 23:23 36.3 110 18 133/88 (103) 96 Room Air 12/24/17 20:00 Room Air 12/24/17 19:21 37.7 102 18 155/96 (115) 95 Room Air 12/24/17 17:23 111 150/102 (118) 12/24/17 16:00 95 Room Air 12/24/17 15:06 37.1 99 20 188/81 (116) 95 Room Air 12/24/17 12:01 Room Air 12/24/17 11:49 36.4 103 24 166/106 (126) 97 Room Air Lab Results: Results Past 24 Hours Test 12/25/17 05:15 Range/Units White Blood Count 8.24 4.8-10.8 K/uL Red Blood Count 4.55 4.7-6.1 M/uL Hemoglobin 14.0 14.0-18.0 g/dL Hematocrit 40.6 42-52 % Mean Corpuscular Volume 89.2 80-100 fL Mean Corpuscular Hemoglobin 30.8 25-34 pg Mean Corpuscular Hemoglobin Concent 34.5 32-36 g/dl RDW Standard Deviation 42.2 36.4-46.3 fL RDW Coefficient of Variation 12.9 11.5-14.5 % Platelet Count 213 130-400 K/uL Mean Platelet Volume 10.4 7.4-10.4 fL Sodium Level 138 136-145 mmol/L Potassium Level 3.7 3.5-5.1 mmol/L Chloride Level 104 98-107 mmol/L Carbon Dioxide Level 28 21-32 mmol/L Anion Gap 6.0 3-11 mmol/L Blood Urea Nitrogen 11 7-18 mg/dl Creatinine 0.90 0.60-1.40 mg/dl Est Creatinine Clear Calc Drug Dose 147.0 ml/min Estimated GFR () 125.1 Estimated GFR (Non- 108.0 BUN/Creatinine Ratio 11.8 10-20 Random Glucose 89 70-99 mg/dl Calcium Level 8.7 8.5-10.1 mg/dl Magnesium Level 2.1 1.8-2.4 mg/dl
[2017-12-25] MEDS ORDERED: CLC6 PO (11:08)
[2017-12-25] MEDS ORDERED: LSN5 PO (11:08)
--- NOTE | 2017-12-25 11:09 | Discharge Instructions ---
Discharge Instructions Date of Service December 25, 2017. Admission Reason for Admission: Pericarditis Discharge Discharge Diagnosis / Problem: Acute Pericarditis,HTN,H/O Sleep Apnea Discharge Goals Goal(s): Prevent Disease Progression Activity Recommendations Activity Limitations: resume your previous activity . Instructions / Follow-Up Instructions / Follow-Up Please make an appointment with your PCP in 1week.Cardiology appointment in 1-2 weeks. Current Hospital Diet Patient's current hospital diet: AHA Diet (Heart Healthy) Discharge Diet Recommended Diet: AHA Diet (Heart Healthy) Pending Studies Studies pending at discharge: no Medical Emergencies . Who to Call and When: Medical Emergencies: If at any time you feel your situation is an emergency, please call 911 immediately. . Non-Emergent Contact Non-Emergency issues call your: Primary Care Provider . Past History Medical & Surgical History: (1) Pericarditis (2) Cardiomegaly (3) Pleuritic chest pain (4) HTN (hypertension) . "Provider Documentation" section prepared by Lamont Griggs. .
[2017-12-25 11:26] VITALS: BP 147/96; PULSE 84; TEMP 36.6; O2SAT 94
[2017-12-25 11:43] VITALS: BP 147/96; PULSE 84; TEMP 36.6; O2SAT 94
--- NOTE | 2017-12-25 18:13 | Discharge Summary ---
Discharge Summary Date of Service December 25, 2017. Discharge Summary Admission Date: December 23, 2017 at 23:51 Discharge Date: December 25, 2017 Discharge Disposition: Home Principal Diagnosis: Acute Pericarditis,HTN Secondary Diagnoses/Problems: Please see H&P and Hospital Progress note Consultations: Cardiology Medication Reconciliation New Medications: Colchicine (Colcrys) 0.6 Mg Tab 0.6 MG PO BID for 30 Days, #60 TAB For 3 months Lisinopril (Lisinopril) 5 Mg Tab 5 MG PO QAM for 30 Days, #30 TAB Continued Medications: Aspirin (Aspirin Ec) 81 Mg Tab 81 MG PO TODAY Ibuprofen Tab (Motrin) 800 Mg Tab 600 MG PO Q8H PRN for Pain, TAB Three times daily with Food for 1 week.Three times daily as needed for the Next week. Omeprazole (Prilosec) 20 Mg Capcr 20 MG PO DAILY, CAP Admission Information HPI (per Admitting provider): DATE OF ADMISSION: 12/23/2017 PRIMARY CARE DOCTOR: Dr. Que Jiang. CHIEF COMPLAINT: Chest pain. HISTORY OF PRESENT ILLNESS: History obtained from patient and records. Medical history significant for hypertension, past tobacco abuse, CARLENE status post surgery. Recent confinement March 2017 for cholecystitis sp cholecystectomy. A few days history of pleuritic chest pain going to the back. No flu-like symptoms. Denies tick bites. No cough. Some shortness of breath. No fever and chills. No trauma. Brought to the Emergency Room. CT chest showed no PE, cardiac enlargement, small pericardial effusion, pericarditis, small left pleural effusion with left basilar consolidation, hepatosteatosis. Patient received Colchicine in the ER. MEDICAL HISTORY: As above. There is no trauma. SURGERIES: Cholecystectomy, uvulopalatopharyngoplasty. HOME MEDICATIONS: Ibuprofen p.r.n., Prilosec. 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 REVIEW OF SYSTEMS: As per HPI. All 10 systems reviewed. All other ROS negative. PHYSICAL EXAMINATION: VITAL SIGNS: Blood pressure was noted to be 139/95, pulse rate 92, RR 16, temperature 36.7, sats 98RA GENERAL: Obese. Uncomfortable, no respiratory distress SKIN: Normal color, warm. HEENT: Marcellus palpebral conjunctivae. No ptosis. Dry mucosa. NECK: Short and supple. CHEST: Decreased breath sounds. No tenderness. HEART: Regular rate and rhythm. No murmur. ABDOMEN: Some distention and non tender. EXTREMITIES: No edema. No gross deformities. No tenderness. NEUROLOGIC: Coherent. No gross focality. LABORATORY DATA: Hemoglobin 14, hematocrit 41, white cells 9, platelets 198. Sodium noted to be 141, potassium 3.4, chloride 107, CO2 of 27, BUN 11, creatinine 1, glucose 98, troponin negative. CT chest as above. EKG as per my interpretation, rate 110, sinus tachycardia, T-wave inversion on the inferior leads. ASSESSMENT: 1. Acute pericarditis/pericardial effusion No obvious etio for now 2. History of hypertension, not requiring meds since sleep apnea surgery BP slightly elevated 3. past tobacco abuse. 4. hypokalemia. PLAN: PCU baseline ESR, CRP NSAIDs prn analgesia TTE RE pericarditis/pericardial effusion colchicine as per [facility] [place] Cardio recommendations. (ER provider already in touch with Dr. Eli.) Replace potassium. DVT prophylaxis SCDs Full code. Hospital Course Acute pericarditis/pericardial effusion No obvious etiology for now No significant EKG and or EKG changes CTA-Negative for any Pulmonary embolism Appreciate Cardiology input ECHO:: * 1. Normal left ventricular size and systolic function. Estimated EF 55-60%. No regional wall motion abnormalities. Mild concentric left ventricular hypertrophy. * 2. The right ventricle is mildly dilated. The right ventricular systolic function is normal as assessed by tricuspid annular plane systolic excursion ( TAPSE) (normal >1.5 cm). * 3. Small pericardial effusion with echogenic fibrinous component, but without echocardiographic evidence of tamponade physiology. * 4. No significant valvular abnormalities. * 5. Normal estimated right ventricular systolic pressure; 24mmHg. * 6. No prior study available for comparison. NSAID and Colchicine::Recommend ibuprofen 600 mg 3 times daily with food around the clock for 1-2 weeks and then 3 times daily on an as-needed basis. Colchicine 0.6 mg twice daily for 3 months without interruption EKG-Questionable lateral Ischemic changes Likely the reflection of Pericarditis Discussed with Dr Sotelo Will discharge home today History of hypertension, not requiring meds since sleep apnea surgery BP slightly elevated ACEI added BP is controlled H/O CARLENE Not on any CPAP/BIPAP Seems stable Past tobacco abuse. DVT prophylaxis SCDs Code Status:Full Total time spent on discharge = 35 minutes This includes examination of the patient, discharge planning, medication reconciliation, and communication with other providers. Discharge Instructions Date of Service December 25, 2017. Admission Reason for Admission: Pericarditis Discharge Discharge Diagnosis / Problem: Acute Pericarditis,HTN,H/O Sleep Apnea Discharge Goals Goal(s): Prevent Disease Progression Activity Recommendations Activity Limitations: resume your previous activity . Instructions / Follow-Up Instructions / Follow-Up Please make an appointment with your PCP in 1week.Cardiology appointment in 1-2 weeks. Current Hospital Diet Patient's current hospital diet: AHA Diet (Heart Healthy) Discharge Diet Recommended Diet: AHA Diet (Heart Healthy) Pending Studies Studies pending at discharge: no Medical Emergencies . Who to Call and When: Medical Emergencies: If at any time you feel your situation is an emergency, please call 911 immediately. . Non-Emergent Contact Non-Emergency issues call your: Primary Care Provider . Past History Medical & Surgical History: (1) Pericarditis (2) Cardiomegaly (3) Pleuritic chest pain (4) HTN (hypertension) . "Provider Documentation" section prepared by Lamont Griggs. . <Electronically signed by Lamont Griggs M.D.> Signed: 12/25/17 1104
== END 2017-12-25 12:30 | disposition home or self-care (01) | DRG 316 ==
LOC: C.EDB 19:30 → C.2T 23:51 → ENRESERV 12-24 00:08
PROVIDERS: ADMIT Internal Medicine; ATTEND Internal Medicine
DX: I31.9 Disease of pericardium, unspecified (principal); Z83.3 Family history of diabetes mellitus; Z82.49 Family history of ischemic heart disease and other diseases of the circulatory system; Z79.82 Long term (current) use of aspirin; I31.3 Pericardial effusion (noninflammatory); I10 Essential (primary) hypertension; Z87.891 Personal history of nicotine dependence